=== PATIENT | female | born 1990 | race Caucasian/White ===

== ENCOUNTER 2016-08-27 11:25 | Emergency (ER) | payer OTHER ==
[2016-08-27] MEDS ORDERED: KETOROLAC 30 MG/ML 1 ML VIAL IVP STA (13:12)
[2016-08-27] MEDS ORDERED: HYDROmorphone 1 MG/ML 1 ML SYRINGE IVP STA ×2 (13:12→15:09)
[2016-08-27] MEDS ORDERED: ONDANSETRON 4 MG/2 ML VIAL IVP STA (13:12)
[2016-08-27] MEDS ORDERED: SODIUM CHLORIDE 0.9% 1,000 ML IV STA ×2 (13:12)
--- NOTE | 2016-08-27 13:48 | ED ---
General Adult HPI - General Chief complaint: Back Pain/Injury Stated complaint: back and side pain Time Seen by Provider: 08/27/16 13:08 Source: patient Mode of arrival: ambulatory Limitations: no limitations - History of Present Illness Initial comments: This 26-year-old white female presents with a complaint of some left flank pain which seems to radiate into her left lower abdomen. She states that it started yesterday and has progressively worsened. She has had some frequency but denies any hematuria or dysuria. She has had chills but denies any fever. She' s tried Tylenol without any relief. She denies any nausea or vomiting. She also denies any possibility of . She does have a history of previous renal stones, urinary tract infections, pyelonephritis, ovarian cysts, and blood clots in her kidney. No other complaints or modifying factors. - Related Data Home Medications Medication Instructions Recorded Confirmed Albuterol Inhaler [Ventolin Hfa 1 - 2 puff INHALATION RT-Q6H PRN 12/05/15 Inhaler] Acetaminophen [Tylenol] 1,500 mg PO Q4-6H PRN 08/27/16 08/27/16 D-Methorphan/Acetamin/Doxylamn 45 ml PO HS PRN 08/27/16 08/27/16 [Vicks Nyquil Cold & Flu Liquid] Previous Rx's Medication Instructions Recorded Ciprofloxacin HCl [Cipro] 500 mg PO Q12HR #20 tablet 08/27/16 Hydrocodone/Acetaminophen [[place] 1 - 2 each PO Q4HR PRN #20 tab 08/27/16 5-325] Allergies Allergy/AdvReac Type Severity Reaction Status Date / Time progesterone Allergy Swelling Verified 08/27/16 14:22 Review of Systems ROS Statement: Those systems with pertinent positive or pertinent negative responses have been documented in the HPI. ROS Other: All systems not noted in ROS Statement are negative. Past Medical History Past Medical History: Asthma Additional Past Medical History / Comment(s): OVARIAN CYST, scoliosis , kidney stones, blood clots in kidneys History of Any Multi-Drug Resistant Organisms: None Reported Past Surgical History: Appendectomy, Section, Orthopedic Surgery Additional Past Surgical History / Comment(s): OVARIAN CYST SURGERY, ORTHO SURGERY TO RIGHT HIP, RIGHT KNEE, RIGHT FOOT, right foot 2nd toe Past Psychological History: Depression Smoking Status: Current every day smoker Past Alcohol Use History: None Reported Past Drug Use History: None Reported - Past Family History Father History Unknown: Yes Additional Family Medical History / Comment(s): BONE CANCER General Exam - General Exam Comments Initial Comments: GENERAL: The patient is well nourished and well hydrated. VITAL SIGNS: Heart rate, blood pressure, respiratory rate reviewed as recorded in nurse's notes. EYES: Pupils are round and reactive. Extraocular movements are intact. No conjunctival / lid redness or swelling. ENT: No external evidence of injury, swelling, or ecchymosis. Airway is patent. Throat is clear. NECK: Nontender. No swelling or evidence of injury. No subcutaneous emphysema. Trachea is midline. No thyroid mass. HEART: Regular rate and rhythm. Good peripheral pulses. LUNGS/CHEST: Breath sounds clear and equal bilaterally. No rales, rhonchi, or wheezes. No ecchymosis, subcutaneous emphysema, or tenderness. ABDOMEN: There is tenderness into the left flank and minimally into the left lower abdomen. No palpable masses or organomegaly. No peritoneal signs. No abdominal wall swelling or ecchymosis. EXTREMITIES: No extremity tenderness. Normal muscle tone and function. No thoracolumbar tenderness. NEUROLOGIC: Sensation is grossly intact. Cranial nerve exam reveals face is symmetrical, tongue is midline, speech is clear. SKIN: No abrasions or ecchymosis is noted. No induration or masses noted. PSYCHIATRIC: Alert and oriented. Appropriate behavior and judgment. Limitations: no limitations Course Vital Signs 08/27/16 08/27/16 11:26 15:17 Temperature 96.4 F L 98.3 F Pulse Rate 120 H 90 Respiratory 20 20 Rate Blood Pressure 186/90 101/61 O2 Sat by Pulse 100 100 Oximetry Medical Decision Making - Medical Decision Making The patient was seen and examined. All diagnostics were reviewed. She did receive some Dilaudid for pain control. She also received some IV fluids. The Dilaudid was later repeated intravenously. She also received Toradol. She is in much less relief on recheck. The urinalysis did show possibility of urinary tract infection. White blood cell count is slightly elevated. The computed tomography scan of the abdomen and pelvis does show evidence for a 2 cm left ovarian cyst. The possibility of medullary sponge kidney is certainly possible as well per radiology. She receives Rocephin intravenously. Overall is felt as though she is stable for discharge. Her diagnoses were discussed in detail with her. Return parameters are discussed. - Lab Data Result diagrams: 08/27/16 13:50 08/27/16 13:50 Lab Results 08/27/16 08/27/16 08/27/16 Range/Units 13:31 13:31 13:50 WBC 11.0 H (3.8-10.6) k/uL RBC 4.65 (3.80-5.40) m/uL Hgb 15.4 (11.4-16.0) gm/dL Hct 46.2 H (34.0-46.0) % MCV 99.3 (80.0-100.0) fL MCH 33.0 (25.0-35.0) pg MCHC 33.3 (31.0-37.0) g/dL RDW 12.5 (11.5-15.5) % Plt Count 197 (150-450) k/uL Neutrophils % 77 % Lymphocytes % 14 % Monocytes % 5 % Eosinophils % 1 % Basophils % 0 % Neutrophils # 8.5 H (1.3-7.7) k/uL Lymphocytes # 1.6 (1.0-4.8) k/uL Monocytes # 0.5 (0-1.0) k/uL Eosinophils # 0.2 (0-0.7) k/uL Basophils # 0.0 (0-0.2) k/uL Sodium (137-145) mmol/L Potassium (3.5-5.1) mmol/L Chloride (98-107) mmol/L Carbon Dioxide (22-30) mmol/L Anion Gap mmol/L BUN (7-17) mg/dL Creatinine (0.52-1.04) mg/dL Est GFR (MDRD) Af Amer (>60 ml/min/1.73 sqM) Est GFR (MDRD) Non-Af (>60 ml/min/1.73 sqM) Glucose (74-99) mg/dL Calcium (8.4-10.2) mg/dL Total Bilirubin (0.2-1.3) mg/dL AST (14-36) U/L ALT (9-52) U/L Alkaline Phosphatase (38-126) U/L Total Protein (6.3-8.2) g/dL Albumin (3.5-5.0) g/dL Urine Color Yellow Urine Appearance Cloudy H (Clear) Urine pH 7.0 (5.0-8.0) Ur Specific [place] 1.010 (1.001-1.035) Urine Protein Negative (Negative) Urine Glucose (UA) Negative (Negative) Urine Ketones Negative (Negative) Urine Blood Moderate H (Negative) Urine Nitrite Negative (Negative) Urine Bilirubin Negative (Negative) Urine Urobilinogen <2.0 (<2.0) mg/dL Ur Leukocyte Esterase Moderate H (Negative) Urine RBC 2 (0-5) /hpf Urine WBC 13 H (0-5) /hpf Ur Squamous Epith Cells 13 H (0-4) /hpf Amorphous Sediment Rare H (None) /hpf Urine Bacteria Rare H (None) /hpf Urine Mucus Rare H (None) /hpf Urine HCG, Qual Not Detected (Not Detectd) 08/27/16 Range/Units 13:50 WBC (3.8-10.6) k/uL RBC (3.80-5.40) m/uL Hgb (11.4-16.0) gm/dL Hct (34.0-46.0) % MCV (80.0-100.0) fL MCH (25.0-35.0) pg MCHC (31.0-37.0) g/dL RDW (11.5-15.5) % Plt Count (150-450) k/uL Neutrophils % % Lymphocytes % % Monocytes % % Eosinophils % % Basophils % % Neutrophils # (1.3-7.7) k/uL Lymphocytes # (1.0-4.8) k/uL Monocytes # (0-1.0) k/uL Eosinophils # (0-0.7) k/uL Basophils # (0-0.2) k/uL Sodium 142 (137-145) mmol/L Potassium 4.1 (3.5-5.1) mmol/L Chloride 104 (98-107) mmol/L Carbon Dioxide 25 (22-30) mmol/L Anion Gap 13 mmol/L BUN 10 (7-17) mg/dL Creatinine 0.58 (0.52-1.04) mg/dL Est GFR (MDRD) Af Amer >60 (>60 ml/min/1.73 sqM) Est GFR (MDRD) Non-Af >60 (>60 ml/min/1.73 sqM) Glucose 92 (74-99) mg/dL Calcium 9.6 (8.4-10.2) mg/dL Total Bilirubin 0.7 (0.2-1.3) mg/dL AST 21 (14-36) U/L ALT 20 (9-52) U/L Alkaline Phosphatase 71 (38-126) U/L Total Protein 8.0 (6.3-8.2) g/dL Albumin 4.7 (3.5-5.0) g/dL Urine Color Urine Appearance (Clear) Urine pH (5.0-8.0) Ur Specific [place] (1.001-1.035) Urine Protein (Negative) Urine Glucose (UA) (Negative) Urine Ketones (Negative) Urine Blood (Negative) Urine Nitrite (Negative) Urine Bilirubin (Negative) Urine Urobilinogen (<2.0) mg/dL Ur Leukocyte Esterase (Negative) Urine RBC (0-5) /hpf Urine WBC (0-5) /hpf Ur Squamous Epith Cells (0-4) /hpf Amorphous Sediment (None) /hpf Urine Bacteria (None) /hpf Urine Mucus (None) /hpf Urine HCG, Qual (Not Detectd) Disposition Clinical Impression: Ovarian cyst, Flank pain, UTI (urinary tract infection), Abdominal pain Disposition: HOME SELF-CARE Condition: Good Instructions: Abdominal Pain (ED), Ovarian Cyst (ED), Urinary Tract Infection in Women (ED) Prescriptions: Ciprofloxacin HCl [Cipro] 500 mg PO Q12HR #20 tablet Hydrocodone/Acetaminophen [[place] 5-325] 1 - 2 each PO Q4HR PRN #20 tab PRN Reason: Pain Referrals: Jenny White MD [Primary Care Provider] - 1-2 days Time of Disposition: 15:42
[2016-08-27 13:57] LABS: Amorphous Sediment,Urine Rare /hpf; Appearance,Urine Cloudy (Clear); Bacteria,Urine Rare /hpf; Bilirubin,Urine Negative (Negative); Glucose,Urine (UA) Negative (Negative); Ketones,Urine Negative (Negative); Leukocyte Esterase,Urine Moderate (Negative); Mucus,Urine Rare /hpf; Nitrite,Urine Negative (Negative); Particle Count 98430; Protein,Urine Negative (Negative); RBC,Urine 2 /hpf (0-5); Squamous Epithelial Cell,Urine 13 /hpf (0-4); UA Billing (MACRO vs. MICRO) MICRO; Urobilinogen,Urine <2.0 mg/dL (<2.0); WBC,Urine 13 /hpf (0-5)
[2016-08-27 14:02] LABS: Basophils % (A) 0 %; CH 32.4; CHCM 32.8; Eosinophils # (A) 0.2 k/uL (0-0.7); Eosinophils % (A) 1 %; HCT 46.2 % (34.0-46.0); HDW 2.11; HGB 15.4 gm/dL (11.4-16.0); Luc # (Auto) 0.23; Luc % (Auto) 2; Lymphocytes # (A) 1.6 k/uL (1.0-4.8); Lymphocytes % (A) 14 %; MCHC 33.3 g/dL (31.0-37.0); MCV 99.3 fL (80.0-100.0); Mean Platelet Volume 9.8; Monocytes # (A) 0.5 k/uL (0-1.0); Monocytes % (A) 5 %; Neutrophils # (A) 8.5 k/uL (1.3-7.7); Neutrophils % (A) 77 %; RBC 4.65 m/uL (3.80-5.40); RDW 12.5 % (11.5-15.5); WBC (Perox) 10.94
[2016-08-27 14:17] LABS: ALT 20 U/L (9-52); AST 21 U/L (14-36); Alkaline Phosphatase 71 U/L (38-126); Anion Gap 13 mmol/L; Blood Urea Nitrogen 10 mg/dL (7-17); Calcium 9.6 mg/dL (8.4-10.2); Carbon Dioxide 25 mmol/L (22-30); Chloride 104 mmol/L (98-107); Glucose 92 mg/dL (74-99); Non-African American GFR(MDRD) >60 (>60 ml/min/1.73 sqM); Potassium 4.1 mmol/L (3.5-5.1); Sodium 142 mmol/L (137-145); Total Bilirubin 0.7 mg/dL (0.2-1.3)
--- NOTE | 2016-08-27 15:22 | CT ---
EXAMINATION TYPE: CT abdomen pelvis wo con DATE OF EXAM: 08/27/2016 3:04 PM COMPARISON: 05/10/2015 HISTORY: Pt states of left flank pain. CT DLP: 331.0 mGycm Automated exposure control for dose reduction was used. TECHNIQUE: Helical acquisition of images was performed from the lung bases through the pelvis. FINDINGS: LUNG BASES: No significant abnormality is appreciated. LIVER/GB: No significant abnormality is appreciated. PANCREAS: No significant abnormality is seen. SPLEEN: No significant abnormality is seen. ADRENALS: No significant abnormality is seen. KIDNEYS: Medullary pyramids are somewhat dense which can occasionally be seen with medullary sponge k idney. No sizable renal calcification or obstruction. URINARY BLADDER: No significant abnormality is seen. ADENOPATHY: None visualized. OSSEOUS STRUCTURES: No significant abnormality is seen. BOWEL: Previous surgery involving the right colon suggesting with staple line suggested. Correlate w ith surgical history. OTHER: There is a fluid-filled structure in the left adnexa measuring 2 cm likely in the basis of ova simba cyst. Uterus appears prominent in size. IMPRESSION: FINDINGS SUGGESTIVE OF 2 CM LEFT OVARIAN CYST. HYPERDENSE MEDULLARY PYRAMIDS IS NONSPECIFIC AND OCCASIONALLY BE SEEN WITH MEDULLARY SPONGE KIDNEY. N O HYDRONEPHROSIS. CORRELATE WITH URINALYSIS. PREVIOUS NOTED RIGHT RENAL LESION NOT SEEN ON TODAY'S EXAM DUE TO LACK OF IV CONTRAST AND SHOULD BE C ORRELATED CLINICALLY..
[2016-08-27 15:56] VITALS: BP 97/67; PULSE 97; RESP 18; TEMP 97.6
== END 2016-08-27 16:16 | disposition home or self-care (01) ==
LOC: EC 11:25
DX: N83.202 Unspecified ovarian cyst, left side (principal); N39.0 Urinary tract infection, site not specified; F17.200 Nicotine dependence, unspecified, uncomplicated; Z90.49 Acquired absence of other specified parts of digestive tract; Z87.442 Personal history of urinary calculi; Z98.890 Other specified postprocedural states; Z88.8 Allergy status to other drugs, medicaments and biological substances
CPT/HCPCS: 96375 ×4; 96376 ×2; 96361 ×2; 96365 ×2; 99284 ×2; 36415; 80053; 85025; 81001; 81025; 87040; 74176; J2405; J0696; J1885; J1170; 96374

== ENCOUNTER 2017-03-26 20:16 | Emergency (ER) | payer OTHER ==
[2017-03-26 20:40] VITALS: RESP 18
--- NOTE | 2017-03-26 20:45 | ED ---
General Adult HPI - General Chief complaint: Upper Respiratory Infection Stated complaint: URI Time Seen by Provider: 03/26/17 20:44 Source: patient Mode of arrival: ambulatory Limitations: no limitations - History of Present Illness Initial comments: Patient is a 26-year-old female with past medical history of asthma and current every day smoker who presents to the emergency department for evaluation of cough for 4 days duration. Patient reports that she developed cough and shortness of breath on Saturday. She reports that since that time she has been using her inhaler approximately every 2 hours while she is awake with minimal transient improvement in her cough. She reports that today she feels the cough is becoming more productive and she has been experiencing progressively worsening shortness of breath. She reports that this evening became overwhelming which prompted her to come to the emergency department for further evaluation. Patient reports that as a child she was hospitalized for her asthma and she does believe she may of been intubated in the past however this is not happening to her since she was very young. - Related Data Home Medications Medication Instructions Recorded Confirmed Albuterol Inhaler [Ventolin Hfa 1 - 2 puff INHALATION RT-Q6H PRN 12/05/15 Inhaler] Acetaminophen [Tylenol] 1,000 mg PO Q4-6H PRN 08/27/16 03/26/17 Ibuprofen [Motrin] 600 mg PO Q8HR PRN 03/26/17 03/26/17 Previous Rx's Medication Instructions Recorded Albuterol Nebulized (Conc) 0 mg INHALATION Q4-6H PRN #60 neb 03/26/17 [Ventolin Nebulized (Conc)] predniSONE 50 mg PO DAILY #5 tablet 03/26/17 Allergies Allergy/AdvReac Type Severity Reaction Status Date / Time progesterone Allergy Swelling Verified 03/26/17 20:57 Review of Systems ROS Statement: Those systems with pertinent positive or pertinent negative responses have been documented in the HPI. ROS Other: All systems not noted in ROS Statement are negative. Constitutional: Reports: fever, chills Eyes: Denies: vision change ENT: Reports: throat pain Respiratory: Reports: cough, dyspnea, wheezes Cardiovascular: Reports: palpitations. Denies: chest pain Endocrine: Reports: fatigue Gastrointestinal: Denies: abdominal pain, nausea, vomiting Genitourinary: Denies: urgency, dysuria Musculoskeletal: Denies: back pain Skin: Denies: rash, lesions Neurological: Denies: headache, weakness Psychiatric: Reports: anxiety Hematological/Lymphatic: Denies: easy bleeding, easy bruising Past Medical History Past Medical History: Asthma Additional Past Medical History / Comment(s): OVARIAN CYST, scoliosis , kidney stones, blood clots in kidneys History of Any Multi-Drug Resistant Organisms: None Reported Past Surgical History: Appendectomy, Section, Orthopedic Surgery Additional Past Surgical History / Comment(s): OVARIAN CYST SURGERY, ORTHO SURGERY TO RIGHT HIP, RIGHT KNEE, RIGHT FOOT, right foot 2nd toe Past Psychological History: Depression Smoking Status: Current every day smoker Past Alcohol Use History: Occasional Past Drug Use History: None Reported - Past Family History Father History Unknown: Yes Additional Family Medical History / Comment(s): BONE CANCER General Exam Limitations: no limitations General appearance: alert, anxious Head exam: Present: atraumatic, normocephalic Eye exam: Present: normal appearance, PERRL Neck exam: Present: normal inspection, full ROM. Absent: lymphadenopathy Respiratory exam: Present: wheezes, prolonged expiratory Cardiovascular Exam: Present: normal rhythm, tachycardia GI/Abdominal exam: Present: soft. Absent: distended, tenderness, guarding, rebound, rigid Rectal exam: Present: deferred Extremities exam: Present: normal inspection Back exam: Present: normal inspection. Absent: CVA tenderness (R), CVA tenderness (L) Neurological exam: Present: alert, oriented X3 Psychiatric exam: Present: anxious (Crying) Skin exam: Present: warm, diaphoretic Course Vital Signs 03/26/17 03/26/17 03/26/17 20:37 21:10 21:28 Temperature 98.7 F Pulse Rate 95 96 96 Respiratory 18 Rate Blood Pressure 125/63 O2 Sat by Pulse 99 Oximetry 03/26/17 22:37 Temperature 98.2 F Pulse Rate 87 Respiratory 18 Rate Blood Pressure 122/65 O2 Sat by Pulse 100 Oximetry Procedures - Smoking Cessation Time Spent Discussing Smoking Cessation w/Patient (Minutes): 10 Patient Acknowledges Need for Cessation: Yes Medical Decision Making - Medical Decision Making Patient was seen and evaluated, history was obtained from the patient Patient has a history of asthma with home nebulizer which she is currently out of, as well as home rescue inhaler which she has been using with minimal relief Patient is a current every day smoker Patient with progressively worsening nonproductive cough and wheeze since Saturday Patient not tachycardic or hypoxic on arrival physical exam is consistent with acute asthma exacerbation as the patient has wheezing in all lung keller. I will order DuoNeb therapy and chest x-ray Chest x-ray without acute process Patient had significant improvement in symptoms after DuoNeb's Patient was reevaluated and was sleeping comfortably in the ER bed. I woke the patient and discussed with her improvement in her symptoms. I advised that I think she has a viral upper respiratory tract infection, not influenza, and that she can be managed outpatient with [id number] nebulizer and by mouth steroids. We'll not give a dose of steroids this evening as they can make the patient agitated and she wants to sleep this evening she will start by mouth steroids in the morning. Patient was prescribed nebulizer therapy. She does have a nebulizer at home but has been out of her medication. Eyes the patient to return to the ER should she develop any worsening cough or shortness of breath, fevers, chest pain or any signs or symptoms she finds concerning. All questions pertaining to care were answered to the best of my ability and the patient was discharged home in a much improved condition with the diagnoses of acute asthma exacerbation, upper respiratory tract infection and tobacco abuse - Lab Data Lab Results 03/26/17 Range/Units 21:45 Influenza Type A RNA Not Detected (Not Detectd) Influenza Type B (PCR) Not Detected (Not Detectd) Disposition Clinical Impression: Viral infection, Upper respiratory infection, Asthma exacerbation, Tobacco abuse Disposition: HOME SELF-CARE Condition: Good Instructions: Upper Respiratory Infection (ED) Prescriptions: Albuterol Nebulized (Conc) [Ventolin Nebulized (Conc)] 0 mg INHALATION Q4-6H PRN #60 neb PRN Reason: Cough predniSONE 50 mg PO DAILY #5 tablet Referrals: Jenny White MD [Primary Care Provider] - 1-2 days Time of Disposition: 22:37
[2017-03-26] MEDS ORDERED: IPRATROPIUM-ALBUTEROL 3 ML NEB INHALATION STA (20:53)
--- NOTE | 2017-03-26 22:04 | XR ---
EXAMINATION TYPE: XR chest 2V DATE OF EXAM: 03/26/2017 COMPARISON: Prior exam 05/30/2010 HISTORY: Cough and shortness of breath TECHNIQUE: Frontal and lateral views of the chest are obtained. FINDINGS: There is no focal air space opacity, pleural effusion, or pneumothorax seen. The cardiac silhouette size is within normal limits. The osseous structures are intact. There may be a spinal c urvature. IMPRESSION: No acute cardiopulmonary process.
[2017-03-26 22:39] VITALS: BP 122/65; PULSE 87; TEMP 98.2
== END 2017-03-26 22:46 | disposition home or self-care (01) ==
LOC: EC 20:16
DX: J45.901 Unspecified asthma with (acute) exacerbation (principal); J06.9 Acute upper respiratory infection, unspecified; B34.9 Viral infection, unspecified; F17.200 Nicotine dependence, unspecified, uncomplicated; Z71.6 Tobacco abuse counseling; Z88.8 Allergy status to other drugs, medicaments and biological substances
CPT/HCPCS: 71020; 87502; 94640; 99284

== ENCOUNTER 2020-01-18 10:30 | Observation (INO) | payer OTHER ==
[2020-01-18] MEDS ORDERED: KETOROLAC 30 MG/ML 1 ML VIAL IVP STA (11:10)
--- NOTE | 2020-01-18 11:39 | ED ---
Abdominal Pain HPI - General Source: patient Mode of arrival: ambulatory Limitations: no limitations <Nancy Fuchs - Last Filed: 01/25/20 10:42> <Ros Roberson - Last Filed: 01/25/20 22:28> - General Chief Complaint: Abdominal Pain Stated Complaint: flank & back pain Time Seen by Provider: 01/18/20 10:56 - History of Present Illness Initial Comments: 29-year-old febrile presents today for chief complaint of right flank pain nausea and dysuria. Patient states that she has history of kidney stones she states that she has been having flank pain that radiates towards the anterior abdomen since Saturday. Also endorses dysuria and states that the symptoms are similar to when she's had a kidney stone in the past. Patient denies fevers, admits to chills. Denies , vaginal bleeding. Patient denies vomiting, diarrhea. Patient denies chest pain or SOB. Patient appears uncomfortable on arrival. (Nancy Fuchs) - Related Data Previous Rx's Medication Instructions Recorded Acetaminophen Tab [Tylenol] 650 mg PO Q6HR PRN tab 01/19/20 Ciprofloxacin HCl [Cipro] 500 mg PO BID 6 Days #6 tab 01/19/20 metroNIDAZOLE [Flagyl] 500 mg PO TID 6 Days tab 01/19/20 Allergies Allergy/AdvReac Type Severity Reaction Status Date / Time progesterone Allergy Swelling Verified 01/18/20 13:57 Review of Systems ROS Other: All systems not noted in ROS Statement are negative. <Nancy Fuchs - Last Filed: 01/25/20 10:42> ROS Other: All systems not noted in ROS Statement are negative. <Ros Roberson - Last Filed: 01/25/20 22:28> ROS Statement: Those systems with pertinent positive or pertinent negative responses have been documented in the HPI. Past Medical History Past Medical History: Asthma Additional Past Medical History / Comment(s): Bronchial asthma mild intermittent in nature, ovarian cyst, scoliosis , kidney stones, history of UTI with Klebsiella and E. coli History of Any Multi-Drug Resistant Organisms: None Reported Past Surgical History: Appendectomy, Section, Orthopedic Surgery Additional Past Surgical History / Comment(s): OVARIAN CYST SURGERY, ORTHO SURGERY TO RIGHT HIP, RIGHT KNEE, RIGHT FOOT, right foot 2nd toe Past Anesthesia/Blood Transfusion Reactions: Postoperative Nausea & Vomiting (PONV) Past Psychological History: Anxiety, Depression Smoking Status: Current every day smoker Past Alcohol Use History: None Reported Past Drug Use History: None Reported - Past Family History Daughter(s) Family Medical History: Asthma Additional Family Medical History / Comment(s): tracheomalacia Brother(s) Additional Family Medical History / Comment(s): hydrocephalus Father History Unknown: Yes Additional Family Medical History / Comment(s): BONE CANCER <Nancy Fuchs - Last Filed: 01/25/20 10:42> General Exam Limitations: no limitations <Nancy Fuchs - Last Filed: 01/25/20 10:42> - General Exam Comments Initial Comments: General: The patient is awake and alert, appears uncomfortable, hollding right flank Eye: Pupils are equal, round and reactive to light, extra-ocular movements are intact. No nystagmus. There is normal conjunctiva bilaterally. No signs of icterus. Ears, nose, mouth and throat: There are moist mucous membranes and no oral lesions. Neck: The neck is supple, there is no tenderness or JVD. Cardiovascular: There is a regular rate and rhythm. No murmur, rub or gallop is appreciated. Respiratory: Lungs are clear to auscultation, respirations are non-labored, breath sounds are equal. No wheezes, stridor, rales, or rhonchi. Gastrointestinal: Soft, non-distended, non-tender abdomen without masses or organomegaly noted. There is no rebound or guarding present. Right CVA tenderness. Musculoskeletal: Normal ROM, no tenderness. Strength 5/5. Sensation intact. Pulses equal bilaterally 2+. Neurological: A&O x 3. CN II-XII intact grossly, There are no obvious motor or sensory deficits. Coordination appears grossly intact. Speech is normal. Skin: Skin is warm and dry and no rashes or lesions are noted. Psychiatric: Cooperative, appropriate mood & affect, normal judgment. (ShilaNancy Monzon) Course Vital Signs 01/18/20 01/18/20 01/18/20 10:50 13:12 15:25 Temperature 99.1 F 99.2 F Pulse Rate 114 H 104 H 98 Respiratory 18 18 18 Rate Blood Pressure 107/63 104/64 111/68 O2 Sat by Pulse 99 98 98 Oximetry Medical Decision Making - Lab Data Result diagrams: 01/19/20 05:50 01/19/20 05:50 <Nancy Fuchs - Last Filed: 01/25/20 10:42> - Lab Data Result diagrams: 01/19/20 05:50 01/19/20 05:50 <Ros Roberson - Last Filed: 01/25/20 22:28> - Medical Decision Making 29yo female presenting today for the cc of flank pain, hx of stones. No stone on CT, significant infection. Pain not controlled in the ER. She also has findings concerning for developing sepsis with VS. DOes not appear toxic at this time. Patient case discussed with Dr. Roberson who is agreeable to admission for IV antibiotics and pain controll. Patient agreeable to admission. (Nancy Fuchs) I was available for consultation in the emergency department. The history and physical exam were done by the midlevel provider. I was consulted for this patients care. I reviewed the case with the midlevel provider and based on their presentation of the patient, I agree with the assessment, medical decision making and plan of care as documented. Spoke with Dr. Cordova who agreed to admit the patient. Chart was dictated using [employer] dictation software. Attempts were made to correct any dictation errors however some typographical errors may persist. Patient was seen during a national state of emergency due to the Covid-19 pandemic. (Ros Roberson) - Lab Data Lab Results 01/18/20 01/18/20 01/18/20 Range/Units 11:09 11:09 11:12 WBC 8.0 (3.8-10.6) k/uL RBC 3.66 L (3.80-5.40) m/uL Hgb 11.2 L (11.4-16.0) gm/dL Hct 34.8 (34.0-46.0) % MCV 95.0 (80.0-100.0) fL MCH 30.7 (25.0-35.0) pg MCHC 32.3 (31.0-37.0) g/dL RDW 12.5 (11.5-15.5) % Plt Count 168 (150-450) k/uL Neutrophils % 82 % Lymphocytes % 8 % Monocytes % 7 % Eosinophils % 1 % Basophils % 0 % Neutrophils # 6.5 (1.3-7.7) k/uL Lymphocytes # 0.6 L (1.0-4.8) k/uL Monocytes # 0.6 (0-1.0) k/uL Eosinophils # 0.1 (0-0.7) k/uL Basophils # 0.0 (0-0.2) k/uL Sodium 139 (137-145) mmol/L Potassium 4.3 (3.5-5.1) mmol/L Chloride 108 H (98-107) mmol/L Carbon Dioxide 27 (22-30) mmol/L Anion Gap 4 mmol/L BUN 15 (7-17) mg/dL Creatinine 0.50 L (0.52-1.04) mg/dL Est GFR (CKD-EPI)AfAm >90 (>60 ml/min/1.73 sqM) Est GFR (CKD-EPI)NonAf >90 (>60 ml/min/1.73 sqM) Glucose 108 H (74-99) mg/dL Calcium 8.7 (8.4-10.2) mg/dL Total Bilirubin 0.5 (0.2-1.3) mg/dL AST 19 (14-36) U/L ALT 11 (4-34) U/L Alkaline Phosphatase 58 (38-126) U/L Total Protein 5.9 L (6.3-8.2) g/dL Albumin 3.7 (3.5-5.0) g/dL Urine Color Yellow Urine Appearance Turbid H (Clear) Urine pH 7.0 (5.0-8.0) Ur Specific [place] 1.016 (1.001-1.035) Urine Protein 2+ H (Negative) Urine Glucose (UA) Negative (Negative) Urine Ketones Negative (Negative) Urine Blood Moderate H (Negative) Urine Nitrite Negative (Negative) Urine Bilirubin Negative (Negative) Urine Urobilinogen <2.0 (<2.0) mg/dL Ur Leukocyte Esterase Large H (Negative) Urine RBC 28 H (0-5) /hpf Urine WBC >182 H (0-5) /hpf Urine WBC Clumps Many H (None) /hpf Ur Squamous Epith Cells 2 (0-4) /hpf Urine Bacteria Moderate H (None) /hpf Urine Mucus Few H (None) /hpf Urine HCG, Qual (Not Detectd) Chlamydia Source Chlamydia DNA (PCR) (Neg,Equiv) N. gonorrhoeae Source N.gonorrhoeae DNA Probe (Neg,Equiv) Trichomonas Ag (Rapid) (Negative) 01/18/20 01/18/20 01/18/20 Range/Units 11:12 12:20 12:20 WBC (3.8-10.6) k/uL RBC (3.80-5.40) m/uL Hgb (11.4-16.0) gm/dL Hct (34.0-46.0) % MCV (80.0-100.0) fL MCH (25.0-35.0) pg MCHC (31.0-37.0) g/dL RDW (11.5-15.5) % Plt Count (150-450) k/uL Neutrophils % % Lymphocytes % % Monocytes % % Eosinophils % % Basophils % % Neutrophils # (1.3-7.7) k/uL Lymphocytes # (1.0-4.8) k/uL Monocytes # (0-1.0) k/uL Eosinophils # (0-0.7) k/uL Basophils # (0-0.2) k/uL Sodium (137-145) mmol/L Potassium (3.5-5.1) mmol/L Chloride (98-107) mmol/L Carbon Dioxide (22-30) mmol/L Anion Gap mmol/L BUN (7-17) mg/dL Creatinine (0.52-1.04) mg/dL Est GFR (CKD-EPI)AfAm (>60 ml/min/1.73 sqM) Est GFR (CKD-EPI)NonAf (>60 ml/min/1.73 sqM) Glucose (74-99) mg/dL Calcium (8.4-10.2) mg/dL Total Bilirubin (0.2-1.3) mg/dL AST (14-36) U/L ALT (4-34) U/L Alkaline Phosphatase (38-126) U/L Total Protein (6.3-8.2) g/dL Albumin (3.5-5.0) g/dL Urine Color Urine Appearance (Clear) Urine pH (5.0-8.0) Ur Specific [place] (1.001-1.035) Urine Protein (Negative) Urine Glucose (UA) (Negative) Urine Ketones (Negative) Urine Blood (Negative) Urine Nitrite (Negative) Urine Bilirubin (Negative) Urine Urobilinogen (<2.0) mg/dL Ur Leukocyte Esterase (Negative) Urine RBC (0-5) /hpf Urine WBC (0-5) /hpf Urine WBC Clumps (None) /hpf Ur Squamous Epith Cells (0-4) /hpf Urine Bacteria (None) /hpf Urine Mucus (None) /hpf Urine HCG, Qual Not Detected (Not Detectd) Chlamydia Source Vagina Chlamydia DNA (PCR) Negative (Neg,Equiv) N. gonorrhoeae Source Vagina N.gonorrhoeae DNA Probe Negative (Neg,Equiv) Trichomonas Ag (Rapid) Positive H (Negative) Disposition Is patient prescribed a controlled substance at d/c from ED?: No Time of Disposition: 13:15 Decision to Admit Reason: Admit from EC Decision Date: 01/18/20 Decision Time: 13:15 <Nancy Fuchs - Last Filed: 01/25/20 10:42> <Ros Roberson - Last Filed: 01/25/20 22:28> Clinical Impression: Pyelonephritis, Fever, UTI (urinary tract infection), Right flank pain, Intractable pain Disposition: ADMITTED IP TO THIS HOSP Condition: Stable
--- NOTE | 2020-01-18 11:43 | CT ---
EXAMINATION TYPE: CT abdomen pelvis wo con DATE OF EXAM: 01/18/2020 HISTORY: Right flank pain. History of kidney stones. CT DLP: 488.3 mGycm. Automated Exposure Control for Dose Reduction was Utilized. TECHNIQUE: CT scan of the abdomen and pelvis is performed without oral or IV contrast. COMPARISON: CT abdomen and pelvis January 27, 2018 FINDINGS: Within the limitations of a non-contrast study, the following observations are made. LUNG BASES: No significant abnormality is appreciated. LIVER/GB: No significant abnormality is appreciated. PANCREAS: No significant abnormality is seen. SPLEEN: No significant abnormality is seen. ADRENALS: No significant abnormality is seen. KIDNEYS: Redemonstration of single 1 to 2 mm nonobstructing calculus left kidney midpole level carroll l image 56 not significant change from prior. No left-sided hydronephrosis. Persistent mild fullness right renal pelvis with new lower pole calyceal dilatation coronal image 50. Obstructing calculus not clearly seen. No significant hydroureter. No intraluminal calculi in the po jcarlos distended bladder. Stable 4 mm left pelvic phlebolith axial image 128. BOWEL: Surgical sutures at the base of cecum from appendectomy in the right pelvis redemonstrated. Rhodes boptimal evaluation without enteric contrast and patient having little intra-abdominal fat. No suspic ious small or large bowel dilatation. Mild ascites in the pelvis adjacent to the lower uterine segmen t axial image 128. GENITAL ORGANS: Retroverted uterus. Normal size ovaries. LYMPH NODES: No greater than 1cm abdominal or pelvic lymph nodes are appreciated. OSSEOUS STRUCTURES: Sacralized left L5 segment redemonstrated. OTHER: No significant additional abnormality is seen. IMPRESSION: Cannot exclude new mild right-sided hydronephrosis. New and/or obstructing calculus not c learly visualized. Consider recently passed calculus. Consider vesicoureteral reflux. Mild to minimal nonspecific free fluid in pelvis. Diminished pelvic fluid versus prior. No new or acute finding othe rwise seen.
[2020-01-18 11:45] LABS: Appearance,Urine Turbid (Clear); Bacteria,Urine Moderate /hpf; Bilirubin,Urine Negative (Negative); Blood,Urine Moderate (Negative); Color,Urine Yellow; Glucose,Urine (UA) Negative (Negative); Ketones,Urine Negative (Negative); Leukocyte Esterase,Urine Large (Negative); Mucus,Urine Few /hpf; Nitrite,Urine Negative (Negative); Protein,Urine 2+ (Negative); RBC,Urine 28 /hpf (0-5); Specific Gravity,Urine 1.016 (1.001-1.035); Squamous Epithelial Cell,Urine 2 /hpf (0-4); Urobilinogen,Urine <2.0 mg/dL (<2.0); WBC,Urine >182 /hpf (0-5)
[2020-01-18 12:13] LABS: Basophils % (A) 0 %; Eosinophils # (A) 0.1 k/uL (0-0.7); Eosinophils % (A) 1 %; HCT 34.8 % (34.0-46.0); HGB 11.2 gm/dL (11.4-16.0); Lymphocytes # (A) 0.6 k/uL (1.0-4.8); Lymphocytes % (A) 8 %; MCH 30.7 pg (25.0-35.0); MCHC 32.3 g/dL (31.0-37.0); Mean Platelet Volume 8.6; Monocytes # (A) 0.6 k/uL (0-1.0); Monocytes % (A) 7 %; Neutrophils # (A) 6.5 k/uL (1.3-7.7); Neutrophils % (A) 82 %; Platelet Count 168 k/uL (150-450); RBC 3.66 m/uL (3.80-5.40); RDW 12.5 % (11.5-15.5)
[2020-01-18 12:27] LABS: ALT 11 U/L (4-34); AST 19 U/L (14-36); African American GFR (CKD) >90 (>60 ml/min/1.73 sqM); Albumin 3.7 g/dL (3.5-5.0); Alkaline Phosphatase 58 U/L (38-126); Anion Gap 4 mmol/L; Blood Urea Nitrogen 15 mg/dL (7-17); Calcium 8.7 mg/dL (8.4-10.2); Carbon Dioxide 27 mmol/L (22-30); Chloride 108 mmol/L (98-107); Glucose 108 mg/dL (74-99); Non-African American GFR(CKD) >90 (>60 ml/min/1.73 sqM); Potassium 4.3 mmol/L (3.5-5.1); Sodium 139 mmol/L (137-145); Total Bilirubin 0.5 mg/dL (0.2-1.3); Total Protein 5.9 g/dL (6.3-8.2)
[2020-01-18] MEDS ORDERED: ACET/COD 300 MG/30 MG STARTER PACK 6 TAB BTL PO STA (12:28)
[2020-01-18] MEDS ORDERED: MORPHINE SULFATE 2 MG/ML SYRINGE IVP STA (12:44)
[2020-01-18] MEDS ORDERED: SODIUM CHLORIDE 0.9% 1,000 ML IV ONE (13:14)
[2020-01-18] MEDS ORDERED: SODIUM CHLORIDE 0.9% 500 ML 500 ML IV ONE (13:14)
[2020-01-18] MEDS ORDERED: NALOXONE 0.4 MG/ML 1 ML VIAL IV PRN ×2 (13:15→15:04)
[2020-01-18] MEDS: SODIUM CHLORIDE 0.9% 1,000 ML IV SCH (13:39)
[2020-01-18] MEDS ORDERED: metroNIDAZOLE 500 MG TAB PO STA (14:36)
[2020-01-18] MEDS ORDERED: DOCUSATE 100 MG CAP PO PRN (15:04)
[2020-01-18] MEDS ORDERED: ONDANSETRON 4 MG/2 ML VIAL IVP PRN (15:04)
[2020-01-18] MEDS: MORPHINE SULFATE 2 MG/ML SYRINGE IVP PRN ×2 (15:30→20:58)
--- NOTE | 2020-01-18 15:34 | P.HPIM ---
History of Present Illness H&P Date: 01/18/20 Chief Complaint: abdominal pain 29-year-old woman with past medical history of kidney stones, appendectomy presented with abdominal pain. Patient tells me that her pain started Saturday, feels like it's on her right flank and radiates down to her groin. The pain is severe enough that it does not give her comfortable position to rest. She's had loss of appetite, nausea. She denies any vomiting, fevers. She reports chills. She denies chest pain, shortness of breath, palpitations, syncopal, dysuria, dyschezia, hematemesis, hematuria, hematochezia, melena, numbness/weakness. On arrival she was afebrile, 104/64, heart rate 104, 98% on room air. CBC, chemistries, LFTs are unremarkable. UA was significant for 2+ protein, moderate blood, large leukocyte esterase, 28 RBCs, rate of than 182 WBCs, many WBC clumps, moderate bacteria. Beta hCG was negative. Serology for Trichomonas antigen was positive. CT of the abdomen/pelvis could not exclude a new mild rig ht-sided hydronephrosis, but did not show any new or obstructing calculus, suspicion for recently passed calculus. Review of Systems All Systems reviewed and pertinent positives and negatives noted in HPI, all other symptoms are negative Past Medical History Past Medical History: Asthma Additional Past Medical History / Comment(s): Bronchial asthma mild intermittent in nature, ovarian cyst, scoliosis , kidney stones, history of UTI with Klebsiella and E. coli History of Any Multi-Drug Resistant Organisms: None Reported Past Surgical History: Appendectomy, Section, Orthopedic Surgery Additional Past Surgical History / Comment(s): OVARIAN CYST SURGERY, ORTHO SURGERY TO RIGHT HIP, RIGHT KNEE, RIGHT FOOT, right foot 2nd toe Past Anesthesia/Blood Transfusion Reactions: Postoperative Nausea & Vomiting (PONV) Past Psychological History: Anxiety, Depression Smoking Status: Current every day smoker Past Alcohol Use History: None Reported Past Drug Use History: None Reported - Past Family History Daughter(s) Family Medical History: Asthma Additional Family Medical History / Comment(s): tracheomalacia Brother(s) Additional Family Medical History / Comment(s): hydrocephalus Father History Unknown: Yes Additional Family Medical History / Comment(s): BONE CANCER Medications and Allergies Home Medications Medication Instructions Recorded Confirmed Type Acetaminophen Tab [Tylenol Tab] 1,000 mg PO Q6HR PRN 01/18/20 01/18/20 History Ibuprofen [Motrin Ib] 400 mg PO Q8H PRN 01/18/20 01/18/20 History Allergies Allergy/AdvReac Type Severity Reaction Status Date / Time progesterone Allergy Swelling Verified 01/18/20 13:57 Physical Exam Osteopathic Statement: *. No significant issues noted on an osteopathic structural exam other than those noted in the History and Physical/Consult. Vitals: Vital Signs Temp Pulse Resp BP Pulse Ox 01/18/20 13:12 99.2 F 104 H 18 104/64 98 01/18/20 10:50 99.1 F 114 H 18 107/63 99 Intake and Output 01/18/20 01/18/20 01/18/20 06:59 14:59 22:59 Other: Weight 65.136 kg Gen: awake, alert HEENT: normocephalic, atraumatic, good hearing acuity, moist mucous membranes Resp: CTAB, good air exchange, no accessory muscle use, no wheezes, crackles, rhonchi CVS: good distal perfusion x 4, RRR, no murmurs, clicks, gallops GI: soft, NTTP, ND : no SPT, positive CVAT, valverde catheter not present MSK: no pitting edema, no clubbing Neuro: non-focal, no sensory deficits, appropriate tone Psych: cooperative, euthymic mood Results CBC & Chem 7: 01/18/20 11:09 01/18/20 11:09 Labs: Abnormal Lab Results - Last 24 Hours (Table) 01/18/20 01/18/20 01/18/20 Range/Units 11:09 11:09 11:12 RBC 3.66 L (3.80-5.40) m/uL Hgb 11.2 L (11.4-16.0) gm/dL Lymphocytes # 0.6 L (1.0-4.8) k/uL Chloride 108 H (98-107) mmol/L Creatinine 0.50 L (0.52-1.04) mg/dL Glucose 108 H (74-99) mg/dL Total Protein 5.9 L (6.3-8.2) g/dL Urine Appearance Turbid H (Clear) Urine Protein 2+ H (Negative) Urine Blood Moderate H (Negative) Ur Leukocyte Esterase Large H (Negative) Urine RBC 28 H (0-5) /hpf Urine WBC >182 H (0-5) /hpf Urine WBC Clumps Many H (None) /hpf Urine Bacteria Moderate H (None) /hpf Urine Mucus Few H (None) /hpf Trichomonas Ag (Rapid) (Negative) 01/18/20 Range/Units 12:20 RBC (3.80-5.40) m/uL Hgb (11.4-16.0) gm/dL Lymphocytes # (1.0-4.8) k/uL Chloride (98-107) mmol/L Creatinine (0.52-1.04) mg/dL Glucose (74-99) mg/dL Total Protein (6.3-8.2) g/dL Urine Appearance (Clear) Urine Protein (Negative) Urine Blood (Negative) Ur Leukocyte Esterase (Negative) Urine RBC (0-5) /hpf Urine WBC (0-5) /hpf Urine WBC Clumps (None) /hpf Urine Bacteria (None) /hpf Urine Mucus (None) /hpf Trichomonas Ag (Rapid) Positive H (Negative) Assessment and Plan Assessment: 1. Acute pyelonephritis, right-sided 2. Trichomonal infection 29-year-old woman with history of kidney stones presented with acute right-sided costovertebral angle tenderness and chills with a positive UA and CT abdomen/pelvis concerning for recently passed kidney stone; incedentally positive trichomonal antigen in the blood. Plan: - nausea control: zofran PRN - pain control: tylenol PRN + toradol PRN + morphine PRN - f/u UCx - ceftriaxone 1g daily, flagyl 500mg q8h - IVF - will do renal US if no improvement in pain within 24 hours to exclude worsening hydronephrosis - low threshold for urology c/s Full Code Heparin 5000U q8h Regular Diet
[2020-01-18] MEDS: HEPARIN SODIUM,PORCINE 5,000 UNIT/ML 1 ML VIAL SQ SCH (17:15)
[2020-01-18] MEDS: ACETAMINOPHEN TAB 325 MG TAB PO PRN (17:17)
[2020-01-18] MEDS: KETOROLAC 30 MG/ML 1 ML VIAL IVP PRN (17:17)
[2020-01-18] MEDS: metroNIDAZOLE-NS PMX 500 MG in SALINE 1 100ML.BAG IVPB SCH (23:19)
[2020-01-19] MEDS: ACETAMINOPHEN TAB 325 MG TAB PO PRN (01:16)
[2020-01-19] MEDS: KETOROLAC 30 MG/ML 1 ML VIAL IVP PRN ×2 (01:16→10:22)
[2020-01-19] MEDS: HEPARIN SODIUM,PORCINE 5,000 UNIT/ML 1 ML VIAL SQ SCH ×2 (01:17→08:06)
[2020-01-19] MEDS: SODIUM CHLORIDE 0.9% 1,000 ML IV SCH ×2 (05:06→05:17)
[2020-01-19] MEDS: MORPHINE SULFATE 2 MG/ML SYRINGE IVP PRN ×2 (05:18→08:15)
[2020-01-19 06:07] LABS: Basophils % (A) 0 %; Eosinophils # (A) 0.1 k/uL (0-0.7); Eosinophils % (A) 2 %; HCT 32.9 % (34.0-46.0); HGB 10.5 gm/dL (11.4-16.0); Lymphocytes # (A) 0.9 k/uL (1.0-4.8); Lymphocytes % (A) 16 %; MCV 96.8 fL (80.0-100.0); Mean Platelet Volume 10.3; Monocytes # (A) 0.4 k/uL (0-1.0); Monocytes % (A) 7 %; Neutrophils % (A) 72 %; Platelet Count 160 k/uL (150-450); WBC 5.6 k/uL (3.8-10.6)
[2020-01-19 06:21] LABS: African American GFR (CKD) >90 (>60 ml/min/1.73 sqM); Anion Gap 3 mmol/L; Blood Urea Nitrogen 16 mg/dL (7-17); Carbon Dioxide 24 mmol/L (22-30); Chloride 111 mmol/L (98-107); Glucose 99 mg/dL (74-99); Magnesium 1.8 mg/dL (1.6-2.3); Non-African American GFR(CKD) >90 (>60 ml/min/1.73 sqM); Potassium 3.9 mmol/L (3.5-5.1); Sodium 138 mmol/L (137-145)
[2020-01-19 08:11] VITALS: BP 102/63; PULSE 90; RESP 12; TEMP 98.5
[2020-01-19] MEDS: metroNIDAZOLE-NS PMX 500 MG in SALINE 1 100ML.BAG IVPB SCH (08:12)
--- NOTE | 2020-01-19 11:09 | P.DS ---
Providers Date of admission: 01/18/20 14:34 Attending physician: Deisi Roberts MD Primary care physician: Stated None Hospital Course: 1. Acute pyelonephritis, right-sided 2. Trichomonal infection 29-year-old woman with history of kidney stones presented with acute right-sided costovertebral angle tenderness and chills with a positive UA and CT abdomen/pelvis concerning for recently passed kidney stone; incedentally positive trichomonal antigen in the blood. She was started on ceftriaxone and flagyl with tylenol/toradol/morphine PRN for pain control. She improved significantly after one night of antibiotics, and was discharged with total 8 day course of cipro/flagyl for pyelo/urethritis. STI lab results pending at the time of discharge. Instructed to f/u with her PCP, given 1 week work note, and advised to avoid NSAIDs for pain control, and to stick with tylenol PRN. Should she have worsening flank pain, I asked that she return to the hospital for further care. Patient Condition at Discharge: Stable Plan - Discharge Summary Discharge Rx Participant: Yes New Discharge Prescriptions: New Ciprofloxacin HCl [Cipro] 500 mg PO BID 6 Days #6 tab metroNIDAZOLE [Flagyl] 500 mg PO TID 6 Days tab Acetaminophen Tab [Tylenol] 650 mg PO Q6HR PRN tab PRN Reason: Mild Pain Or Fever > 100.5 Discontinued Ibuprofen [Motrin Ib] 400 mg PO Q8H PRN PRN Reason: Pain Or Fever > 100.5 Acetaminophen Tab [Tylenol Tab] 1,000 mg PO Q6HR PRN PRN Reason: Pain Or Fever > 100.5 Discharge Medication List Acetaminophen Tab [Tylenol] 650 mg PO Q6HR PRN tab 01/19/20 [Rx] Ciprofloxacin HCl [Cipro] 500 mg PO BID 6 Days #6 tab 01/19/20 [Rx] metroNIDAZOLE [Flagyl] 500 mg PO TID 6 Days tab 01/19/20 [Rx] Follow up Appointment(s)/Referral(s): None,Stated [Primary Care Provider] - 1-2 days Patient Instructions/Handouts: Urinary Tract Infection in Women (DC) Discharge/Stand Alone Forms: Work/Release Restrictions Form Discharge Disposition: HOME SELF-CARE
[2020-01-19 15:53] LABS: C. trachomatis,PCR Negative (Neg,Equiv); Chlamydia trachomatis Source Vagina; N. gonorrhoeae,PCR Negative (Neg,Equiv); Neisseria Source Vagina
== END 2020-01-19 10:49 | disposition home or self-care (01) ==
LOC: EC 10:30 → 1SOBS 14:34
PROVIDERS: ADMIT Internal Medicine; ATTEND Internal Medicine
DX: N10 Acute pyelonephritis (principal); A59.9 Trichomoniasis, unspecified; N39.0 Urinary tract infection, site not specified; J45.20 Mild intermittent asthma, uncomplicated; M41.9 Scoliosis, unspecified; F17.200 Nicotine dependence, unspecified, uncomplicated; Z98.890 Other specified postprocedural states; Z90.49 Acquired absence of other specified parts of digestive tract; Z87.442 Personal history of urinary calculi; Z86.19 Personal history of other infectious and parasitic diseases; F41.9 Anxiety disorder, unspecified; F32.9 Major depressive disorder, single episode, unspecified; Z82.5 Family history of asthma and other chronic lower respiratory diseases; Z84.89 Family history of other specified conditions; Z80.8 Family history of malignant neoplasm of other organs or systems; Z79.51 Long term (current) use of inhaled steroids; Z79.52 Long term (current) use of systemic steroids; Z79.899 Other long term (current) drug therapy; Z88.8 Allergy status to other drugs, medicaments and biological substances
CPT/HCPCS: 96361 ×3; 96366; 96367; 96368; 96376 ×2; 96365; 96375; 99285; 36415; 80053; 80048; 83605; 83735; 85025 ×2; 81001; 81025; 87808; 87491; 87591; 87070; 74176; G0378 ×2; J0696 ×2; J1885 ×2; J2270 ×2

== ENCOUNTER 2020-06-13 09:27 | Emergency (ER) | payer OTHER ==
[2020-06-13 09:45] VITALS: TEMP 98.7
[2020-06-13] MEDS ORDERED: IPRATROPIUM-ALBUTEROL 3 ML NEB INHALATION STA (10:19)
[2020-06-13] MEDS ORDERED: methylPREDNISolone SOD SUCCI 125 MG/2 ML VIAL IV STA (10:19)
--- NOTE | 2020-06-13 10:23 | XR ---
EXAMINATION TYPE: XR chest 2V DATE OF EXAM: 06/13/2020 COMPARISON: 02/03/2018 TECHNIQUE: PA and lateral views submitted. HISTORY: Cough FINDINGS: The lungs are clear and there is no pneumothorax, pleural effusion, or focal pneumonia. Heart size normal. No overt failure. IMPRESSION: 1. No acute process.
[2020-06-13] MEDS ORDERED: LORazepam 2 MG/ML INJ IV STA (10:27)
--- NOTE | 2020-06-13 10:29 | ED ---
General Adult HPI - General Chief complaint: Shortness of Breath Stated complaint: SOB, cough, fever Time Seen by Provider: 06/13/20 10:04 Source: patient, RN notes reviewed Mode of arrival: ambulatory Limitations: no limitations - History of Present Illness Initial comments: This a 29-year-old female presents emergency department she went shortness of b reath. Patient states started with cough congestion and achiness a few days ago. No reported fevers or chills. Patient states that she has had a use her nebulizer 3 times yesterday. Patient states is making her feel very anxious. Denies any chest pain no headache no dizziness. Denies any nausea and diarrhea constipation no chance . Patient does have history of asthma. Patient had no sick contacts. - Related Data Home Medications Medication Instructions Recorded Confirmed Albuterol Inhaler [Ventolin Hfa 2 puff INHALATION RT-QID PRN 06/13/20 06/13/20 Inhaler] Albuterol Nebulized [Ventolin 2.5 mg INHALATION RT-BID 06/13/20 06/13/20 Nebulized] Previous Rx's Medication Instructions Recorded predniSONE 50 mg PO DAILY #5 tab 06/13/20 Allergies Allergy/AdvReac Type Severity Reaction Status Date / Time progesterone Allergy Rash/Hives Verified 06/13/20 10:47 Review of Systems ROS Statement: Those systems with pertinent positive or pertinent negative responses have been documented in the HPI. ROS Other: All systems not noted in ROS Statement are negative. Past Medical History Past Medical History: Asthma Additional Past Medical History / Comment(s): Bronchial asthma mild intermittent in nature, ovarian cyst, scoliosis , kidney stones, history of UTI with Klebsiella and E. coli History of Any Multi-Drug Resistant Organisms: None Reported Past Surgical History: Appendectomy, Section, Orthopedic Surgery Additional Past Surgical History / Comment(s): OVARIAN CYST SURGERY, ORTHO SURGERY TO RIGHT HIP, RIGHT KNEE, RIGHT FOOT, right foot 2nd toe Past Anesthesia/Blood Transfusion Reactions: Postoperative Nausea & Vomiting (PONV) Past Psychological History: Anxiety, Depression Smoking Status: Current every day smoker Past Alcohol Use History: None Reported Past Drug Use History: None Reported - Past Family History Daughter(s) Family Medical History: Asthma Additional Family Medical History / Comment(s): tracheomalacia Brother(s) Additional Family Medical History / Comment(s): hydrocephalus Father History Unknown: Yes Additional Family Medical History / Comment(s): BONE CANCER General Exam Limitations: no limitations General appearance: alert, in no apparent distress, anxious, other (Vitals reviewed, pulse ox 100%, patient's in no signs of distress.) Head exam: Present: atraumatic, normocephalic, normal inspection Eye exam: Present: normal appearance, PERRL, EOMI. Absent: scleral icterus, conjunctival injection, periorbital swelling ENT exam: Present: normal exam, normal oropharynx, mucous membranes moist, TM's normal bilaterally Neck exam: Present: normal inspection, full ROM. Absent: tenderness, meningismus, lymphadenopathy Respiratory exam: Present: normal lung sounds bilaterally. Absent: respiratory distress, wheezes, rales, rhonchi, stridor Cardiovascular Exam: Present: regular rate, normal rhythm, normal heart sounds. Absent: systolic murmur, diastolic murmur, rubs, gallop, clicks GI/Abdominal exam: Present: soft, normal bowel sounds. Absent: distended, tenderness, guarding, rebound, rigid Extremities exam: Absent: pedal edema, calf tenderness Neurological exam: Present: alert, oriented X3, CN II-XII intact Skin exam: Present: warm, dry, intact, normal color. Absent: rash Course Vital Signs 06/13/20 06/13/20 06/13/20 09:43 10:35 10:43 Temperature 98.7 F Pulse Rate 69 97 92 Respiratory 22 18 Rate Blood Pressure 124/92 105/72 O2 Sat by Pulse 100 98 Oximetry 06/13/20 06/13/20 11:01 11:10 Temperature Pulse Rate 90 100 Respiratory 18 Rate Blood Pressure 102/58 O2 Sat by Pulse 100 Oximetry Medical Decision Making - Medical Decision Making X-rays negative, Covid test is negative. Patient is greatly improved after DuoNeb treatment, steroids. Patient discharged on prednisone for asthma exacerbation. Patient is a viral infection. - Lab Data Lab Results 06/13/20 Range/Units 10:30 Coronavirus (PCR) Not Detected (Not Detectd) Disposition Clinical Impression: Asthma exacerbation Disposition: HOME SELF-CARE Condition: Stable Instructions (If sedation given, give patient instructions): Asthma (ED) Additional Instructions: Please return to the Emergency Department if symptoms worsen or any other concerns. Prescriptions: predniSONE 50 mg PO DAILY #5 tab Is patient prescribed a controlled substance at d/c from ED?: No Referrals: None,Stated [Primary Care Provider] - 1-2 days Time of Disposition: 11:44
[2020-06-13 10:36] VITALS: RESP 18
[2020-06-13 11:55] VITALS: BP 114/77; PULSE 115
== END 2020-06-13 11:55 | disposition home or self-care (01) ==
LOC: EC 09:27
DX: J45.901 Unspecified asthma with (acute) exacerbation (principal); F17.200 Nicotine dependence, unspecified, uncomplicated; Z79.51 Long term (current) use of inhaled steroids; Z88.8 Allergy status to other drugs, medicaments and biological substances; Z90.49 Acquired absence of other specified parts of digestive tract
CPT/HCPCS: 94640; 87635; 71046; 99285; 96374; 96375; J2060; J2930

== ENCOUNTER 2021-01-19 06:53 | Emergency (ER) | payer OTHER ==
[2021-01-19 07:00] VITALS: TEMP 98.3
[2021-01-19] MEDS ORDERED: SODIUM CHLORIDE 0.9% 1,000 ML IV ONE (07:11)
--- NOTE | 2021-01-19 07:16 | ED ---
General Adult HPI - General Chief complaint: Vaginal Bleeding Stated complaint: Vaginal Bleeding,7wks preg Time Seen by Provider: 01/19/21 07:06 Source: patient Mode of arrival: ambulatory Limitations: no limitations - History of Present Illness Initial comments: 30 year-old female patient presents to the emergency department for evaluation of vaginal bleeding. Patient is 7 weeks , last period 11/29/20. Positive home test 12/31/20. Patient will be seeing Dr. Merritt. Patient has had no ultrasounds for this . She is A0, she has had one twin . Bleeding started at 0600, she soaked through her pants. States she has passed some small blood clots. She denies any significant abdominal pain or cramping. Denies any hematuria, dysuria, urinary urgency, or frequency. Denies any concern for STI. States she did have a lot of vomiting today. Patient denies any recent rash, fever, chills, cough, shortness of breath, chest pain, diarrhea, constipation, back pain, numbness, tingling, dizziness, weakness, headache, visual changes, or any other complaints. - Related Data Home Medications Medication Instructions Recorded Confirmed Albuterol Inhaler [Ventolin Hfa 2 puff INHALATION RT-QID PRN 06/13/20 01/19/21 Inhaler] Allergies Allergy/AdvReac Type Severity Reaction Status Date / Time progesterone Allergy Rash/Hives Verified 01/19/21 08:39 Review of Systems ROS Statement: Those systems with pertinent positive or pertinent negative responses have been documented in the HPI. ROS Other: All systems not noted in ROS Statement are negative. Past Medical History Past Medical History: Asthma Additional Past Medical History / Comment(s): Bronchial asthma mild intermittent in nature, ovarian cyst, scoliosis , kidney stones, history of UTI with Klebsiella and E. coli History of Any Multi-Drug Resistant Organisms: None Reported Past Surgical History: Appendectomy, Section, Orthopedic Surgery Additional Past Surgical History / Comment(s): OVARIAN CYST SURGERY, ORTHO SURGERY TO RIGHT HIP, RIGHT KNEE, RIGHT FOOT, right foot 2nd toe Past Anesthesia/Blood Transfusion Reactions: Postoperative Nausea & Vomiting (PONV) Past Psychological History: Anxiety, Depression Smoking Status: Current every day smoker Past Alcohol Use History: None Reported Past Drug Use History: None Reported - Past Family History Daughter(s) Family Medical History: Asthma Additional Family Medical History / Comment(s): tracheomalacia Brother(s) Additional Family Medical History / Comment(s): hydrocephalus Father History Unknown: Yes Additional Family Medical History / Comment(s): BONE CANCER General Exam Limitations: no limitations General appearance: alert, in no apparent distress, other (This is a well- developed, well-nourished adult female patient in no acute distress. Vital signs upon presentation are temperature 98.3F, pulse 88, respirations 22, blood pressure 84/54, pulse ox 100% on room air) Eye exam: Present: normal appearance, PERRL, EOMI. Absent: scleral icterus, conjunctival injection, periorbital swelling ENT exam: Present: normal exam, normal oropharynx, mucous membranes moist Respiratory exam: Present: normal lung sounds bilaterally. Absent: respiratory distress, wheezes, rales, rhonchi, stridor Cardiovascular Exam: Present: regular rate, normal rhythm, normal heart sounds. Absent: systolic murmur, diastolic murmur, rubs, gallop, clicks GI/Abdominal exam: Present: soft, normal bowel sounds. Absent: distended, tenderness, guarding, rebound, rigid Neurological exam: Present: alert, oriented X3, CN II-XII intact Psychiatric exam: Present: normal affect, normal mood Skin exam: Present: warm, dry, intact, normal color. Absent: rash Course Vital Signs 01/19/21 01/19/21 06:56 07:37 Temperature 98.3 F Pulse Rate 88 90 Respiratory 22 18 Rate Blood Pressure 84/54 103/66 O2 Sat by Pulse 100 99 Oximetry Medical Decision Making - Medical Decision Making 30-year-old female patient presents to the emergency department today for evalu ation of vaginal bleeding in early . Physical examination did reveal soft nontender abdomen. Labs reviewed and did feel hCG level of 71,912. ABO Rh is A+. Ultrasound was obtained and showed measuring 6 weeks 4 days with a heart rate of 118. There is a sizable debby-gestational bleed measuring 2.3 cm. I did discuss findings and results with the patient. Did discuss threatened miscarriage versus subchorionic bleed. She'll be given a lab slip to have repeat hCG drawn in 2 days. She is instructed to follow-up with [facility] for recheck as soon as possible. Return parameters were discussed in detail. She verbalizes understanding and agrees with this plan. Case discussed with my attending Dr. Gonzalez. - Lab Data Result diagrams: 01/19/21 07:36 01/19/21 07:36 Lab Results 01/19/21 01/19/21 01/19/21 Range/Units 07:36 07:36 07:36 WBC 5.6 (3.8-10.6) k/uL RBC 3.80 (3.80-5.40) m/uL Hgb 12.8 (11.4-16.0) gm/dL Hct 37.0 (34.0-46.0) % MCV 97.4 (80.0-100.0) fL MCH 33.6 (25.0-35.0) pg MCHC 34.5 (31.0-37.0) g/dL RDW 11.4 L (11.5-15.5) % Plt Count 173 (150-450) k/uL MPV 9.0 Neutrophils % 66 % Lymphocytes % 24 % Monocytes % 5 % Eosinophils % 1 % Basophils % 0 % Neutrophils # 3.7 (1.3-7.7) k/uL Lymphocytes # 1.3 (1.0-4.8) k/uL Monocytes # 0.3 (0-1.0) k/uL Eosinophils # 0.1 (0-0.7) k/uL Basophils # 0.0 (0-0.2) k/uL Sodium 136 L (137-145) mmol/L Potassium 3.8 (3.5-5.1) mmol/L Chloride 108 H (98-107) mmol/L Carbon Dioxide 21 L (22-30) mmol/L Anion Gap 7 mmol/L BUN 10 (7-17) mg/dL Creatinine 0.44 L (0.52-1.04) mg/dL Est GFR (CKD-EPI)AfAm >90 (>60 ml/min/1.73 sqM) Est GFR (CKD-EPI)NonAf >90 (>60 ml/min/1.73 sqM) Glucose 94 (74-99) mg/dL Calcium 9.2 (8.4-10.2) mg/dL Total Bilirubin 0.4 (0.2-1.3) mg/dL AST 18 (14-36) U/L ALT 10 (4-34) U/L Alkaline Phosphatase 41 (38-126) U/L Total Protein 6.0 L (6.3-8.2) g/dL Albumin 3.9 (3.5-5.0) g/dL HCG, Quant 23619.9 mIU/mL Urine Color Urine Appearance (Clear) Urine pH (5.0-8.0) Ur Specific [place] (1.001-1.035) Urine Protein (Negative) Urine Glucose (UA) (Negative) Urine Ketones (Negative) Urine Blood (Negative) Urine Nitrite (Negative) Urine Bilirubin (Negative) Urine Urobilinogen (<2.0) mg/dL Ur Leukocyte Esterase (Negative) Urine RBC (0-5) /hpf Urine WBC (0-5) /hpf Ur Squamous Epith Cells (0-4) /hpf Urine Mucus (None) /hpf Blood Type A Positive Blood Type Recheck A Pos Bld Type Recheck Status No 01/19/21 Range/Units 08:00 WBC (3.8-10.6) k/uL RBC (3.80-5.40) m/uL Hgb (11.4-16.0) gm/dL Hct (34.0-46.0) % MCV (80.0-100.0) fL MCH (25.0-35.0) pg MCHC (31.0-37.0) g/dL RDW (11.5-15.5) % Plt Count (150-450) k/uL MPV Neutrophils % % Lymphocytes % % Monocytes % % Eosinophils % % Basophils % % Neutrophils # (1.3-7.7) k/uL Lymphocytes # (1.0-4.8) k/uL Monocytes # (0-1.0) k/uL Eosinophils # (0-0.7) k/uL Basophils # (0-0.2) k/uL Sodium (137-145) mmol/L Potassium (3.5-5.1) mmol/L Chloride (98-107) mmol/L Carbon Dioxide (22-30) mmol/L Anion Gap mmol/L BUN (7-17) mg/dL Creatinine (0.52-1.04) mg/dL Est GFR (CKD-EPI)AfAm (>60 ml/min/1.73 sqM) Est GFR (CKD-EPI)NonAf (>60 ml/min/1.73 sqM) Glucose (74-99) mg/dL Calcium (8.4-10.2) mg/dL Total Bilirubin (0.2-1.3) mg/dL AST (14-36) U/L ALT (4-34) U/L Alkaline Phosphatase (38-126) U/L Total Protein (6.3-8.2) g/dL Albumin (3.5-5.0) g/dL HCG, Quant mIU/mL Urine Color Light Yellow Urine Appearance Clear (Clear) Urine pH 6.5 (5.0-8.0) Ur Specific [place] 1.008 (1.001-1.035) Urine Protein Negative (Negative) Urine Glucose (UA) Negative (Negative) Urine Ketones Negative (Negative) Urine Blood Large H (Negative) Urine Nitrite Negative (Negative) Urine Bilirubin Negative (Negative) Urine Urobilinogen <2.0 (<2.0) mg/dL Ur Leukocyte Esterase Negative (Negative) Urine RBC 1 (0-5) /hpf Urine WBC <1 (0-5) /hpf Ur Squamous Epith Cells 2 (0-4) /hpf Urine Mucus Rare H (None) /hpf Blood Type Blood Type Recheck Bld Type Recheck Status - Radiology Data Radiology results: report reviewed, image reviewed Ultrasound of the fetus was obtained. Report was reviewed in its entirety. Impression by Dr. Plasencia shows single live intrauterine with gestational age of 6 weeks 4 days by crown rump length. In addition is borderline bradycardia for gestation of the size, 1 18 bpm. Sizable inferior Gavino gestational bleed measuring 2.3 cm. Disposition Clinical Impression: Threatened miscarriage Disposition: HOME SELF-CARE Condition: Good Instructions (If sedation given, give patient instructions): Threatened Miscarriage (ED) Additional Instructions: Call Dr. Merritt's office for further instructions and appointment. Return in 2 days to have repeat hormone level. Return to the emergency department for any new, worsening, or concerning symptoms. Is patient prescribed a controlled substance at d/c from ED?: No Referrals: None,Stated [Primary Care Provider] - 1-2 days Time of Disposition: 09:04
[2021-01-19 07:38] VITALS: RESP 18
[2021-01-19 07:48] LABS: Basophils % (A) 0 %; Eosinophils # (A) 0.1 k/uL (0-0.7); Eosinophils % (A) 1 %; HGB 12.8 gm/dL (11.4-16.0); Lymphocytes # (A) 1.3 k/uL (1.0-4.8); Lymphocytes % (A) 24 %; MCH 33.6 pg (25.0-35.0); MCHC 34.5 g/dL (31.0-37.0); MCV 97.4 fL (80.0-100.0); Monocytes # (A) 0.3 k/uL (0-1.0); Monocytes % (A) 5 %; Neutrophils # (A) 3.7 k/uL (1.3-7.7); Neutrophils % (A) 66 %; Platelet Count 173 k/uL (150-450); RDW 11.4 % (11.5-15.5); WBC 5.6 k/uL (3.8-10.6)
[2021-01-19 08:02] LABS: ALT 10 U/L (4-34); AST 18 U/L (14-36); African American GFR (CKD) >90 (>60 ml/min/1.73 sqM); Albumin 3.9 g/dL (3.5-5.0); Alkaline Phosphatase 41 U/L (38-126); Anion Gap 7 mmol/L; Blood Urea Nitrogen 10 mg/dL (7-17); Calcium 9.2 mg/dL (8.4-10.2); Carbon Dioxide 21 mmol/L (22-30); Chloride 108 mmol/L (98-107); Glucose 94 mg/dL (74-99); Non-African American GFR(CKD) >90 (>60 ml/min/1.73 sqM); Potassium 3.8 mmol/L (3.5-5.1); Sodium 136 mmol/L (137-145); Total Bilirubin 0.4 mg/dL (0.2-1.3)
[2021-01-19 08:28] LABS: Appearance,Urine Clear (Clear); Bilirubin,Urine Negative (Negative); Blood,Urine Large (Negative); Color,Urine Light Yellow; Glucose,Urine (UA) Negative (Negative); Ketones,Urine Negative (Negative); Leukocyte Esterase,Urine Negative (Negative); Mucus,Urine Rare /hpf; Nitrite,Urine Negative (Negative); PH, Urine 6.5 (5.0-8.0); Protein,Urine Negative (Negative); RBC,Urine 1 /hpf (0-5); Specific Gravity,Urine 1.008 (1.001-1.035); Squamous Epithelial Cell,Urine 2 /hpf (0-4); Urobilinogen,Urine <2.0 mg/dL (<2.0); WBC,Urine <1 /hpf (0-5)
--- NOTE | 2021-01-19 08:28 | US ---
EXAMINATION TYPE: Ultrasound OB <= 14 week fetus DATE OF EXAM: 01/19/2021 8:12 AM COMPARISON: NONE CLINICAL HISTORY: 30-year-old female Vaginal bleeding; 7 weeks. Bleeding. EXAM PERFORMED: Transabdominal (TA) FINDINGS: EXAM MEASUREMENTS: GESTATIONAL AGE / DATING Physician Established: Not yet established Dates by LMP: (7 weeks/2 days) EDC: 09/05/2021 Dates by First Scan: No previous this is first scan Dates by Current Scan for: (6 weeks/4 days +/- 4 days) EDC: 09/10/2021 MATERNAL ANATOMY Uterus: 10.1 x 6.3 x 5.6 cm Right Ovary: 4.2 x 3.0 x 3.4 cm. Simple cystic lesion = 3.1 x 2.5 x 2.3 cm. Left Ovary: 3.5 x 3.6 x 3.3 cm Simple cystic lesion = 3.3 x 3.1 x 2.7 cm. Post CDS / Adnexa: free fluid adjacent to right ovary Presence of free fluid: adjacent to right ovary Presence of subchorionic bleed: 2.3 x 2.6 x 1.0 cm GESTATION / SURVEY CRL: 0.7 cm (6 weeks/4 days) MSD: seen, not measured Yolk Sac (normal less than 6mm): 1.9 mm Heart Rate: 118 bpm Rhythm: Normal IUP: Viable IUP Date of LMP: 11/29/2020, Beta HcG (if available): Not available at this time [facility] [employer] notes: Single live IUP measuring 6 weeks 4 days. IMPRESSION: 1. Single live intrauterine with gestational age of 6 weeks 4 days by CRL. Allowing for lico iation, this is still a day smaller (discordant) than expected based on LMP. 2. In addition, there is borderline bradycardia for a gestation of this size, 118 BPM. 3. Sizable inferior perigestational bleed measuring 2.3 cm. 4. Close clinical surveillance recommended to ensure ongoing viability.
[2021-01-19 08:46] LABS: HCG,Quantitative Serum 71912.9 mIU/mL
[2021-01-19 09:23] VITALS: BP 99/53; PULSE 87
== END 2021-01-19 09:23 | disposition home or self-care (01) ==
LOC: EC 06:53
DX: O20.0 Threatened abortion (principal); O99.511 Diseases of the respiratory system complicating pregnancy, first trimester; O99.341 Other mental disorders complicating pregnancy, first trimester; J45.909 Unspecified asthma, uncomplicated; F41.9 Anxiety disorder, unspecified; F32.9 Major depressive disorder, single episode, unspecified; F17.200 Nicotine dependence, unspecified, uncomplicated; Z3A.01 Less than 8 weeks gestation of pregnancy; Z87.442 Personal history of urinary calculi; Z87.440 Personal history of urinary (tract) infections; Z90.49 Acquired absence of other specified parts of digestive tract
CPT/HCPCS: 36415; 76801; 80053; 81001; 84702; 85025; 86900; 86901; 96360; 99284

== ENCOUNTER → 2021-01-25 | Outpatient (CLI) | payer OTHER ==
--- NOTE | 2021-01-25 13:44 | US ---
EXAMINATION TYPE: Transabdominal DATE OF EXAM: 01/25/2021 1:27 PM COMPARISON: US 01/19/2021 CLINICAL HISTORY: Z36 PREVIOUS ABN U/S. EXAM PERFORMED: Transabdominal (TA) EXAM MEASUREMENTS: GESTATIONAL AGE / DATING Physician Established: Not yet established Dates by LMP: 11/29/2020 (8 weeks/1 days) EDC: 09/05/2021 Dates by First Scan: (7 weeks/3 days) EDC: 09/10/2021 Dates by Current Scan for: (7 weeks/2 days) EDC: 09/11/2021 MATERNAL ANATOMY Uterus: 8.5 x 7.6 x 6.8 cm Right Ovary: 4.1 x 2.2 x 3.2 cm Left Ovary: 4.7 x 3.2 x 3.9 cm Post CDS / Adnexa: wnl Presence of free fluid: none Presence of corpus luteal cyst: cysts on both ovaries Presence of subchorionic bleed: 3.5 x 1.1 x 3.1 cm hypoechoic area adjacent to gestational sac. GESTATION / SURVEY CRL: 1.1 cm (7 weeks/2 days) Yolk Sac (normal less than 6mm): 0.3 cm Heart Rate: 139 bpm Rhythm: Normal IUP: Viable IUP Date of LMP: 11/29/2020 Beta HcG (if available): not available IMPRESSION: Viable IUP that correlates with prior US. Subchorionic bleed noted. Bilateral ovarian cysts, right 2. 4 x 1.9 x 2.1 cm and left 3.1 x 2.7 x 3.4 c .
== END | disposition home or self-care (01) ==
LOC: RADUSWWP 13:05
PROVIDERS: ATTEND Obstetrics & Gynecology
DX: O20.8 Other hemorrhage in early pregnancy (principal); O34.81 Maternal care for other abnormalities of pelvic organs, first trimester; N83.201 Unspecified ovarian cyst, right side; N83.202 Unspecified ovarian cyst, left side
CPT/HCPCS: 76801

== ENCOUNTER 2021-06-05 08:24 | Emergency (ER) | payer OTHER ==
[2021-06-05 08:29] VITALS: RESP 18; TEMP 98.2
[2021-06-05] MEDS ORDERED: SODIUM CHLORIDE 0.9% 2,000 ML IV ONE (08:52)
--- NOTE | 2021-06-05 09:34 | ED ---
General Adult HPI - General Chief complaint: Upper Respiratory Infection Stated complaint: fever/chest pain/27 weeks preg/contractions Time Seen by Provider: 06/05/21 08:31 Source: patient, RN notes reviewed Mode of arrival: ambulatory Limitations: no limitations - History of Present Illness Initial comments: 30-year-old female presents emergency Department chief complaint fever cough congestion bodyaches. Patient states she's had nausea vomiting. Patient is concerned about COVID-19. Patient states she is currently 27 weeks . She does complain of some mild abdominal cramping contractions. Patient states they've been waxing and waning. She denies any vaginal bleeding or vaginal discharge. Patient states that she did take some Tylenol a few hours prior arrival. - Related Data Home Medications Medication Instructions Recorded Confirmed Acetaminophen Tab [Tylenol Tab] 1,000 mg PO Q6HR PRN 06/05/21 06/05/21 Pnv,Calcium 72/Iron/Folic Acid 1 tab PO DAILY 06/05/21 06/05/21 [ Plus Tablet] Allergies Allergy/AdvReac Type Severity Reaction Status Date / Time progesterone Allergy Rash/Hives Verified 06/05/21 09:11 Review of Systems ROS Statement: Those systems with pertinent positive or pertinent negative responses have been documented in the HPI. ROS Other: All systems not noted in ROS Statement are negative. Past Medical History Past Medical History: Asthma Additional Past Medical History / Comment(s): Bronchial asthma mild intermittent in nature, ovarian cyst, scoliosis , kidney stones, history of UTI with Klebsiella and E. coli History of Any Multi-Drug Resistant Organisms: None Reported Past Surgical History: Appendectomy, Section, Orthopedic Surgery Additional Past Surgical History / Comment(s): OVARIAN CYST SURGERY, ORTHO SURGERY TO RIGHT HIP, RIGHT KNEE, RIGHT FOOT, right foot 2nd toe Past Anesthesia/Blood Transfusion Reactions: Postoperative Nausea & Vomiting (PONV) Past Psychological History: Anxiety, Depression Smoking Status: Former smoker Past Alcohol Use History: None Reported Past Drug Use History: None Reported - Past Family History Daughter(s) Family Medical History: Asthma Additional Family Medical History / Comment(s): tracheomalacia Brother(s) Additional Family Medical History / Comment(s): hydrocephalus Father History Unknown: Yes Additional Family Medical History / Comment(s): BONE CANCER General Exam Limitations: no limitations General appearance: alert, in no apparent distress Head exam: Present: atraumatic, normocephalic, normal inspection Eye exam: Present: normal appearance, PERRL, EOMI. Absent: scleral icterus, conjunctival injection, periorbital swelling ENT exam: Present: normal exam, normal oropharynx, mucous membranes moist Neck exam: Present: normal inspection, full ROM. Absent: tenderness, meningismus, lymphadenopathy Respiratory exam: Present: normal lung sounds bilaterally. Absent: respiratory distress, wheezes, rales, rhonchi, stridor Cardiovascular Exam: Present: normal rhythm, tachycardia, normal heart sounds. Absent: systolic murmur, diastolic murmur, rubs, gallop, clicks GI/Abdominal exam: Present: soft, normal bowel sounds. Absent: distended, tenderness, guarding, rebound, rigid Course Vital Signs 06/05/21 06/05/21 06/05/21 08:26 09:46 10:14 Temperature 98.2 F Pulse Rate 119 H 114 H Respiratory 18 18 18 Rate Blood Pressure 121/70 99/65 O2 Sat by Pulse 98 99 Oximetry - Reevaluation(s) Reevaluation #1: 06/05/21 09:33 Upon arrival labor and delivery was contacted. Medical Decision Making - Medical Decision Making Patient is positive for covid 19. Patient will receive monoclonal antibodies. Patient was hydrated. Patient did have heart tones within normal limits. OB nurse did contact Dr. Merritt recommended fluid hydration patient return for any worsening change in symptoms. - Lab Data Lab Results 06/05/21 06/05/21 Range/Units 09:10 09:10 Coronavirus (PCR) Detected A (Not Detectd) Influenza Type A RNA Not Detected (Not Detectd) Influenza Type B (PCR) Not Detected (Not Detectd) Disposition Clinical Impression: COVID-19 Disposition: HOME SELF-CARE Condition: Stable Instructions (If sedation given, give patient instructions): Coronavirus Disease 2019 (COVID-19) Additional Instructions: Please return to the Emergency Department if symptoms worsen or any other concerns. Is patient prescribed a controlled substance at d/c from ED?: No Referrals: None,Stated [Primary Care Provider] - 1-2 days Time of Disposition: 11:10
[2021-06-05] MEDS ORDERED: ONDANSETRON 4 MG/2 ML VIAL IVP STA (10:17)
[2021-06-05] MEDS ORDERED: diphenhydrAMINE 50 MG/ML 1 ML VIAL IVP STA (11:10)
[2021-06-05] MEDS ORDERED: METOCLOPRAMIDE 5 MG/ML 2 ML VIAL IVP STA (11:10)
[2021-06-05] MEDS ORDERED: SODIUM CHLORIDE 0.9% 50 ML IVPB ONE (11:30)
[2021-06-05] MEDS ORDERED: BAMLANIVIMAB (EUA) 700 MG, ETESEVIMAB (EUA) 1,400 MG in SODIUM CHLORIDE 0.9% 100 ML IVPB ONE (11:30)
[2021-06-05 13:50] VITALS: BP 98/63; PULSE 108
== END 2021-06-05 13:53 | disposition home or self-care (01) ==
LOC: EC 08:24
DX: O98.512 Other viral diseases complicating pregnancy, second trimester (principal); O26.892 Other specified pregnancy related conditions, second trimester; U07.1 COVID-19; J45.909 Unspecified asthma, uncomplicated; F41.9 Anxiety disorder, unspecified; F32.A Depression, unspecified; Z3A.27 27 weeks gestation of pregnancy; Z87.442 Personal history of urinary calculi; Z87.440 Personal history of urinary (tract) infections; Z90.49 Acquired absence of other specified parts of digestive tract; Z87.891 Personal history of nicotine dependence
CPT/HCPCS: 96361; 96374; 96375; 99284; M0245; 87502; 87635

== ENCOUNTER 2021-08-21 20:24 | Outpatient (CLI) | payer OTHER ==
[2021-08-21] MEDS ORDERED: ONDANSETRON 4 MG/2 ML VIAL IVP STA (21:16)
[2021-08-21] MEDS: LACTATED RINGERS 1,000 ML IV SCH ×3 (21:25→23:50)
[2021-08-21 23:39] VITALS: BP 104/63; PULSE 119; RESP 16; TEMP 98.1
--- NOTE | 2021-09-01 12:37 | P.MSEPDOC ---
Presenting Problems - Arrival Data Date of Arrival on Unit: 08/21/21 Time of Arrival on Unit: 20:24 Mode of Transport: Wheelchair - Complaint OB-Reason for Admission/Chief Complaint: Other Comment: Nausea, vomiting, and diarrhea x1 day, UC's Medical History - Information : 4 Para: 3 Term: 1 : 1 Abortions: Spontaneous or Elective: 1 Number of Living Children: 3 - Gestational Age Gestational Age by RANJEET (wks/days): 37 Weeks and 6 Days Review of Systems - Review of Systems Constitutional: No problems Breast: No problems ENT: No problems Cardiovascular: No problems Respiratory: No problems Gastrointestinal: No problems Genitourinary: No problems Musculoskeletal: No problems Neurological: No problems Skin: No problems Vital Signs - Temperature Temperature: 98.1 F Temperature Source: Oral - Pulse Right Pulse Rate: 119 Pulse Assessment Method: Pulse Oximetry - Respirations Respiratory Rate: 16 Oxygen Delivery Method: Room Air O2 Sat by Pulse Oximetry: 99 - Blood Pressure Right Arm Blood Pressure: 104/63 Blood Pressure Mean: 76 Blood Pressure Source: Automatic Cuff Medical Screen Scoring - Cervical Exam Dilation (cm): 0 Effacement (%): 80 Station: -2 Membranes: Intact - Uterine Contractions Frequency From (mins): 4 Frequency To (mins): 6 Duration From (seconds): 50 Duration To (seconds): 70 Intensity: Mild Resting: Soft to palpation - Assessment - Baby A Baseline FHR: 150 Heart Rate - NICHD Category: Category I (Normal) NST: Reactive Physician Notification - Physician Notified Physician Notified Date: 08/21/21 Physician Notified Time: 21:08 Physician: Lorie Dejesus New Order Received: Yes Maternal Triage Index - Maternal Triage Index Presenting for scheduled procedure w/no complaint: No - Stat/Priority 1 Stat Priority 1: No - Urgent/Priority 2 Urgent Priority 2: No - Prompt/Priority 3 Prompt Priority 3: No - Non-Urgent/Priority 4 Non-Urgent Priority 4: Yes Criteria Met for Priority 4: Dr. Dejesus was called and notified of pt's arrival and c/o contractions, n/v. and diarreha all day since 1 am this morning, discussed FHT's, pt's pulse, cervical. exam, negative amniosure, orders to give patient a liter of fluid IV, and 4 mg of zofran. iv, once pt's pulse and FHT's come back down in wnl, pt may be discharged home with. instructions to follow up with Dr. Merritt on at her scheduled appt Disposition - Disposition OB Disposition: Discharge to home Discharge Date: 08/21/21 Discharge Time: 23:45 I agree with the RN Medical Screening Exam: Yes Case reviewed; plan agreed upon as documented in EMR&OBIX.: Yes Diagnosis: INFECTIOUS GASTROENTERITIS AND COLITIS, UNSPECIFIED
== END 2021-08-21 23:45 | disposition home or self-care (01) ==
LOC: FBPOP 20:24
PROVIDERS: ATTEND Obstetrics & Gynecology
DX: O99.613 Diseases of the digestive system complicating pregnancy, third trimester (principal); A09 Infectious gastroenteritis and colitis, unspecified; Z3A.37 37 weeks gestation of pregnancy; Z88.8 Allergy status to other drugs, medicaments and biological substances
CPT/HCPCS: 59025; 96361; 96374; 84112; G0463; J2405; 96360; 99214

== ENCOUNTER 2021-08-31 05:59 | Inpatient (IN) | payer OTHER ==
--- NOTE | 2021-08-30 20:04 | P.HPOB ---
History of Present Illness H&P Date: 08/30/21 Chief Complaint: Repeat section with bilateral tubal ligation This is a 31 y.o. female, 4, para 1113, with an estimated date of confinement of 09/05/2021, estimated gestational age of 39-2/7 weeks, who presents for scheduled repeat section with bilateral partial salpingectomy for family planning. She is feeling irregular contractions and pressure. She has been following with MFM due to circumvallate placenta and marginal cord insertion. She has been doing surveillance. labs: Hepatitis B surface antigen-neg RPR-NR Rubella-immune Blood type-A+ Antibody screen-negative Hemoglobin-12.6 1 hr. GTT-99 GBS-neg GC/Chlamydia/Trich-neg OB Hx: . History of 1 section for twins at 32 weeks, 1 repeat at term and 1 miscarriage. Driver Trainee Hx: History of chlamydia treated 2007. Social Hx: Single. 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 Review of Systems Constitutional: Denies chills, Denies fever Eyes: denies blurred vision, denies pain Ears, nose, mouth and throat: Denies headache, Denies sore throat Cardiovascular: Denies chest pain, Denies shortness of breath Respiratory: Denies cough Gastrointestinal: Reports abdominal pain (irregular contractions) Genitourinary: Reports pelvic pain, Reports Integumentary: Denies pruritus, Denies rash Neurological: Denies numbness, Denies weakness Psychiatric: Denies anxiety, Denies depression Past Medical History Past Medical History: Asthma Additional Past Medical History / Comment(s): Bronchial asthma mild intermittent in nature, ovarian cyst, scoliosis , kidney stones, history of UTI with Klebsiella and E. coli History of Any Multi-Drug Resistant Organisms: None Reported Past Surgical History: Appendectomy, Section (x2), Orthopedic Surgery Additional Past Surgical History / Comment(s): Laparoscopy-drainage of ovarian cysts-2010, ORTHO SURGERY TO RIGHT HIP, RIGHT KNEE, RIGHT FOOT, right foot 2nd toe Past Anesthesia/Blood Transfusion Reactions: Postoperative Nausea & Vomiting (PONV) Past Psychological History: Anxiety, Depression Smoking Status: Former smoker Past Alcohol Use History: None Reported Past Drug Use History: None Reported - Past Family History Daughter(s) Family Medical History: Asthma Additional Family Medical History / Comment(s): tracheomalacia Brother(s) Additional Family Medical History / Comment(s): hydrocephalus Father History Unknown: Yes Additional Family Medical History / Comment(s): BONE CANCER Mother Additional Family Medical History / Comment(s): Lupus Medications and Allergies Home Medications Medication Instructions Recorded Confirmed Type Pnv,Calcium 72/Iron/Folic Acid 1 tab PO DAILY 06/05/21 08/31/21 History [ Plus Tablet] Acetaminophen [Tylenol] 325 mg PO Q4H 08/31/21 08/31/21 History Iron 18 mg PO DAILY 08/31/21 08/31/21 History diphenhydrAMINE [Benadryl] 50 mg PO DAILY 08/31/21 08/31/21 History Allergies Allergy/AdvReac Type Severity Reaction Status Date / Time progesterone Allergy Rash/Hives Verified 08/31/21 06:18 Exam Osteopathic Statement: *. No significant issues noted on an osteopathic structural exam other than those noted in the History and Physical/Consult. HEENT: within normal limits Heart: regular rate and rhythm Lungs: clear to auscultation bilaterally Abdomen: , non-tender Pelvic: closed/60%/-1 heart tones: 140's by doppler Extremities: neg. Wayne's Results Result Diagrams: 08/31/21 06:20 Assessment and Plan (1) 39 weeks gestation of Current Visit: No Status: Acute Code(s): Z3A.39 - 39 WEEKS GESTATION OF SNOMED Code(s): 01691188 (2) Family planning Current Visit: No Status: Acute Code(s): Z30.09 - ENCOUNTER FOR OTH GENERAL CNSL AND ADVICE ON CONTRACEPTION SNOMED Code(s): 914874368 Plan: Proceed with repeat section with bilateral partial salpingectomy. I have discussed the risks, benefits, and alternative therapies for the above- mentioned procedure and for both sedation/anesthesia as well as necessary blood products administration, if indicated, as they pertain to this patient. The patient has indicated her understanding and acceptance of the risks and procedures discussed.
[2021-08-31] MEDS ORDERED: LACTATED RINGERS 1,000 ML IV ONE (06:20)
[2021-08-31] MEDS ORDERED: LIDOCAINE 1% (10MG/ML) FOR IV START INTRADERMA PRN (06:20)
[2021-08-31] MEDS ORDERED: CITRIC ACID-SODIUM CITRATE 15 ML CUP PO ONE (06:20)
[2021-08-31] MEDS: LACTATED RINGERS 1,000 ML IV SCH ×2 (06:24→11:05)
[2021-08-31 06:41] LABS: Basophils % (A) 0 %; Eosinophils # (A) 0.1 k/uL (0-0.7); Eosinophils % (A) 1 %; HCT 30.9 % (34.0-46.0); HGB 10.3 gm/dL (11.4-16.0); Lymphocytes # (A) 1.5 k/uL (1.0-4.8); Lymphocytes % (A) 24 %; MCHC 33.3 g/dL (31.0-37.0); MCV 96.1 fL (80.0-100.0); Mean Platelet Volume 9.3; Monocytes # (A) 0.5 k/uL (0-1.0); Monocytes % (A) 8 %; Neutrophils # (A) 4.1 k/uL (1.3-7.7); Neutrophils % (A) 65 %; Platelet Count 256 k/uL (150-450); RBC 3.22 m/uL (3.80-5.40); RDW 12.8 % (11.5-15.5); WBC 6.3 k/uL (3.8-10.6)
[2021-08-31] MEDS ORDERED: KETOROLAC 15 MG/ML 1 ML VIAL ONE (08:01)
[2021-08-31] MEDS ORDERED: fentaNYL (PF) 50 MCG/ML 2 ML AMP ONE (08:01)
[2021-08-31] MEDS ORDERED: PROPOFOL 10 MG/ML 20 ML VIAL IV ONE (08:01)
[2021-08-31] MEDS ORDERED: PHENYLEPHRINE-0.9% NACL SYG 1,000 MCG/10 ML SYRINGE ONE (08:01)
[2021-08-31] MEDS ORDERED: NALBUPHINE 10 MG/ML (1 ML AMP) ONE (08:01)
[2021-08-31] MEDS ORDERED: MORPHINE SULFATE (PF) 0.3 MG/0.3 ML SYR ONE (08:01)
[2021-08-31] MEDS ORDERED: ONDANSETRON 4 MG/2 ML VIAL ONE (08:01)
[2021-08-31] MEDS ORDERED: OXYTOCIN 30 UNITS/500 ML NS BAG IV ONE (08:01)
--- NOTE | 2021-08-31 08:57 | P.OP ---
Date of Procedure: 08/31/21 Preoperative Diagnosis: 1. Intrauterine at 39-2/7 weeks. 2. History of previous section. 3. Family-planning. Postoperative Diagnosis: Same Procedure(s) Performed: Repeat low transverse section with bilateral partial salpingectomy Anesthesia: spinal (Duramorph) Surgeon: Marta Merritt Computer Help Desk Representative #1: Ravindra Mora Estimated Blood Loss (ml): 400 Pathology: other (Placenta, portions of right and left fallopian tubes) Condition: stable Disposition: floor Indications for Procedure: This is a 31-year-old female 4 para 3 at 39-2/7 weeks who presents for scheduled repeat section with bilateral partial salpingectomy for family planning. Please see history of physical for details of patient's admission. I have discussed the risks, benefits, and alternative therapies for the above- mentioned procedure and for both sedation/anesthesia as well as necessary blood products administration, if indicated, as they pertain to this patient. The patient has indicated her understanding and acceptance of the risks and procedures discussed. Operative Findings: A viable female infant is noted in the vertex presentation with scores of 9 at 1 minute and 9 at 5 minutes and weight of 6 lbs. 9 oz. Normal uterus tubes and ovaries are noted. Description of Procedure: The patient is taken to the operating room where she is placed in the dorsal supine position with leftward tilt after spinal Duramorph anesthesia is given. She is prepped and draped in the normal sterile fashion. Skin was tested and found to be adequately anesthetized. A Pfannenstiel skin incision was made with a scalpel removing the previous laparotomy scar. A second knife was used to carry the incision down to the underlying layer of fascia. The fascia was nicked in the midline with a scalpel and then extended laterally bilaterally with Charles scissors. The anterior lip of the fascia was grasped with 2 Pavel clamps and then dissected off the underlying rectus muscle in the midline with Charles scissors. The inferior aspect of the fascial incision was grasped with 2 Pavel clamps and dissected off the underlying rectus muscle and the midline with Charles scissors. Next the peritoneum layer was tented up with 2 hemostats and then entered sharply with the scalpel. The incision is extended superiorly and inferiorly with Metzenbaum scissors. Next a DeLee retractor is placed. The vesicouterine peritoneum is slightly adherent and therefore is left in place. The lower uterine segment is incised in transverse fashion with the scalpel slightly higher up above the vesicouterine peritoneum and then bluntly entered with a hemostat. Clear fluid is noted. The incision was then extended laterally bilaterally with 2 fingers. Next the infant's head is delivered through the incision. Nose and mouth are bulb suctioned. The remainder of the is easily delivered and placed on mother's abdomen. Cord is clamped and cut. Infant is taken to warmer by nursing staff. Uterine fundus is gently massaged and placenta is delivered manually. Uterus is exteriorized and cleared of all clots and debris. Uterine incision is closed with 0 Vicryl suture in a running locked fashion. A second layer of 0 Vicryl suture is used in a running fashion for hemostasis. Next the right fallopian tube is grasped in the midportion with a hemostat and then the mesosalpinx is entered with Bovie cautery. 0 Vicryl suture is tied 2 times around both the proximal and distal portion of the tube. The knuckle of tube is removed with Metzenbaum scissors and then the ends are OB cauterized. The same procedure is carried out on the left fallopian tube. Posterior cul-de-sac is suctioned of all clots and debris. Uterus is returned to the abdomen. Incision is noted to be hemostatic. Both tubal sites are noted to be hemostatic. Peritoneal layer is closed with 0 Vicryl suture in a running fashion. Muscle layer is reapproximated with 0 Vicryl suture in interrupted fashion. Fascia layer is then closed with 0 PDS suture with 2 sutures meeting in the midline and the knots buried in either side and in the midline. The subcutaneous tissue was then closed with 2-0 Vicryl sut ure. Skin layer was then closed with kit. All sponge and needle counts are correct. The patient is taken to recovery room in stable condition.
[2021-08-31] MEDS ORDERED: OXYTOCIN 30 UNITS/500 ML NS 30 UNIT in SALINE 1 500ML.BAG IV SCH (09:14)
[2021-08-31] MEDS ORDERED: MORPHINE SULFATE 2 MG/ML SYRINGE IVP PRN (09:14)
[2021-08-31] MEDS ORDERED: NALOXONE 0.4 MG/ML 1 ML VIAL IV PRN (09:14)
[2021-08-31] MEDS ORDERED: MORPHINE SULFATE 4MG/4ML SYRG IVP PRN (09:14)
[2021-08-31] MEDS ORDERED: ZOLPIDEM 5 MG TAB PO PRN (09:14)
[2021-08-31] MEDS ORDERED: ONDANSETRON 4 MG/2 ML VIAL IVP PRN (09:14)
[2021-08-31] MEDS ORDERED: SIMETHICONE 80 MG CHEWABLE PO PRN (09:14)
[2021-08-31] MEDS ORDERED: diphenhydrAMINE 50 MG/ML 1 ML VIAL IVP PRN ×2 (09:14)
[2021-08-31] MEDS ORDERED: diphenhydrAMINE 25 MG CAP PO PRN (09:14)
[2021-08-31] MEDS ORDERED: METOCLOPRAMIDE 5 MG/ML 2 ML VIAL IVP PRN (09:14)
[2021-08-31] MEDS: MORPHINE SULFATE 4 MG/ML SYRINGE IVP PRN ×3 (09:36→23:37)
[2021-08-31] MEDS: ACETAMINOPHEN TAB 500 MG TAB PO SCH ×2 (11:18→19:30)
[2021-08-31] MEDS: KETOROLAC 15 MG/ML 1 ML VIAL IVP SCH ×2 (14:30→23:37)
[2021-08-31] MEDS: diphenhydrAMINE 50 MG CAP PO PRN (20:17)
[2021-08-31] MEDS: SENNOSIDES-DOCUSATE SODIUM 1 EACH TAB PO SCH (20:21)
[2021-09-01] MEDS: LACTATED RINGERS 1,000 ML IV SCH ×4 (02:54→12:54)
[2021-09-01] MEDS: IBUPROFEN 600 MG TAB PO SCH ×5 (02:54→22:35)
[2021-09-01] MEDS: ACETAMINOPHEN TAB 500 MG TAB PO SCH ×4 (02:55→13:17)
[2021-09-01] MEDS: SENNOSIDES-DOCUSATE SODIUM 1 EACH TAB PO SCH ×2 (07:40→20:15)
[2021-09-01] MEDS: diphenhydrAMINE 50 MG CAP PO PRN ×2 (07:45→20:14)
[2021-09-01 08:14] LABS: Basophils % (A) 0 %; Eosinophils % (A) 0 %; HCT 26.3 % (34.0-46.0); Hypochromasia Slight; Lymphocytes # (A) 0.6 k/uL (1.0-4.8); Lymphocytes % (A) 6 %; MCH 32.6 pg (25.0-35.0); MCHC 33.5 g/dL (31.0-37.0); MCV 97.4 fL (80.0-100.0); Monocytes # (A) 0.5 k/uL (0-1.0); Monocytes % (A) 5 %; Neutrophils # (A) 7.5 k/uL (1.3-7.7); Neutrophils % (A) 86 %; Platelet Count 212 k/uL (150-450); RDW 12.8 % (11.5-15.5); WBC 8.6 k/uL (3.8-10.6)
[2021-09-01 08:15] LABS: HGB 8.8 gm/dL (11.4-16.0)
--- NOTE | 2021-09-01 08:21 | P.PN ---
Progress Note - Text Progress Note Date: 09/01/21 (742) Anesthesia Postop day 1 Subjective: Status Post section with Duramorph. Patient seen and examined. Doing well without complaint. VAS 5 out of 10 this morning. Instructed she has pain breakthrough pain meds available. No nausea or vomiting. Mild pruritus tolerable.. Afebrile. Gross lower extremity strength intact. . Without apparent anesthetic complications. Objective: Vital signs reviewed Heart: Regular Rate Lungs: Good chest excursion Abdomen: Appears nondistended Assessment: Status post with Duramorph postop day 1 Plan: Continue current care with your medical management. Anticipated change in pain needs this morning. Patient tolerated procedure well
--- NOTE | 2021-09-01 09:01 | P.PNOBGPC ---
Subjective - Subjective Principal diagnosis: Status post repeat section with TL POD #1 Interval history: Patient is complaining of pain especially on her incision and below her incision. She has taken Motrin this morning and it is not helping. Lochia is minimal. She is passing flatus and bowel movement. She is bottle feeding. Patient reports: Reports appetite normal, Reports voiding normally, Reports pain poorly controlled, Reports ambulating normally : doing well, bottle feeding Objective - Vital Signs Latest vital signs: Vital Signs Temp Pulse Resp BP Pulse Ox 09/01/21 08:00 98.3 F 99 18 112/70 97 09/01/21 04:00 98.6 F 89 17 107/71 98 09/01/21 00:00 98.5 F 99 18 110/66 95 08/31/21 21:01 98.3 F 108 H 18 107/68 100 08/31/21 16:00 98 F 90 16 119/61 99 08/31/21 11:00 96.3 F L 75 17 103/65 99 08/31/21 10:23 76 17 109/60 99 08/31/21 09:49 96.3 F L 75 16 97/64 98 08/31/21 09:38 75 16 99/69 98 08/31/21 09:23 85 17 94/69 99 08/31/21 09:08 87 17 95/66 99 Intake and Output 08/31/21 09/01/21 09/01/21 22:59 06:59 14:59 Output Total 675 Balance -675 Output: Urine 675 Uretheral (Rudolph) 200 - Exam Extremities: Present: normal. Absent: tenderness Abdomen: Present: soft (Positive bowel sounds 4), tenderness (lower edge of the incision). Absent: distention Incision: Present: intact (Ecchymosis and tenderness is noted along the mons and swelling is noted over the mons area.). Absent: erythematous, dry (There is a small area of serosanguineous discharge on the left side of the incision) Uterus: Present: normal, firm. Absent: tenderness - Labs Labs: Abnormal Lab Results - Last 24 Hours (Table) 09/01/21 Range/Units 07:35 RBC 2.70 L (3.80-5.40) m/uL Hgb 8.8 L D (11.4-16.0) gm/dL Hct 26.3 L (34.0-46.0) % Lymphocytes # 0.6 L (1.0-4.8) k/uL Assessment and Plan Assessment: Status post repeat low transverse section with bilateral partial salpingectomy postoperative day #1 (1) 39 weeks gestation of Current Visit: No Status: Acute Code(s): Z3A.39 - 39 WEEKS GESTATION OF SNOMED Code(s): 04300421 (2) Family planning Current Visit: No Status: Acute Code(s): Z30.09 - ENCOUNTER FOR OT GENERAL CNSL AND ADVICE ON CONTRACEPTION SNOMED Code(s): 620732491 Plan: Will alternate pain medications. Will use ice pack on the hematoma on her mons area. May shower if desired.
[2021-09-01] MEDS: KETOROLAC 15 MG/ML 1 ML VIAL IVP SCH ×3 (10:53→19:19)
[2021-09-01 19:53] LABS: Basophils % (A) 0 %; Eosinophils # (A) 0.1 k/uL (0-0.7); Eosinophils % (A) 1 %; HCT 27.1 % (34.0-46.0); HGB 8.6 gm/dL (11.4-16.0); Hypochromasia Slight; Lymphocytes # (A) 0.9 k/uL (1.0-4.8); Lymphocytes % (A) 12 %; MCH 31.2 pg (25.0-35.0); MCHC 31.9 g/dL (31.0-37.0); MCV 97.8 fL (80.0-100.0); Monocytes # (A) 0.5 k/uL (0-1.0); Monocytes % (A) 6 %; Neutrophils # (A) 5.9 k/uL (1.3-7.7); Neutrophils % (A) 77 %; Platelet Count 200 k/uL (150-450); RBC 2.77 m/uL (3.80-5.40); WBC 7.6 k/uL (3.8-10.6)
[2021-09-02] MEDS: ACETAMINOPHEN TAB 500 MG TAB PO SCH (03:11)
[2021-09-02] MEDS: IBUPROFEN 600 MG TAB PO SCH ×2 (03:13→04:46)
[2021-09-02 07:53] VITALS: BP 124/73; PULSE 95; RESP 16; TEMP 98.2
[2021-09-02] MEDS: SENNOSIDES-DOCUSATE SODIUM 1 EACH TAB PO SCH (08:08)
--- NOTE | 2021-09-02 08:59 | P.DS ---
Providers Date of admission: 08/31/21 05:59 Expected date of discharge: 09/02/21 Attending physician: Marta Merritt Primary care physician: Stated None - Discharge Diagnosis(es) (1) Status post repeat low transverse section Current Visit: Yes Status: Acute Hospital Course: Patient presented for repeat low transverse . Should with this pr ocedure without complication. Postoperatively she developed a hematoma over her mons area but it is not spreading or getting bigger, hemoglobin is stable. Her incision is clean, dry, intact with kit. Patient denies nausea, vomiting, chest pain, shortness of breath or any calf pain. Patient will be discharged home postoperative day #2 in stable condition to follow-up with Dr. Merritt on Saturday for staple removal. Plan - Discharge Summary New Discharge Prescriptions: No Action Acetaminophen [Tylenol] 325 mg PO Q4H Pnv,Calcium 72/Iron/Folic Acid [ Plus Tablet] 1 tab PO DAILY diphenhydrAMINE [Benadryl] 50 mg PO DAILY Iron 18 mg PO DAILY Discharge Medication List Pnv,Calcium 72/Iron/Folic Acid [ Plus Tablet] 1 tab PO DAILY 06/05/21 [History] Acetaminophen [Tylenol] 325 mg PO Q4H 08/31/21 [History] Iron 18 mg PO DAILY 08/31/21 [History] diphenhydrAMINE [Benadryl] 50 mg PO DAILY 08/31/21 [History] Follow up Appointment(s)/Referral(s): Marta Merritt DO [Doctor of Osteopathic Medicine] - 10/10/21 3:30 pm (Post Op 09-14-2021 at 09:00a.m.) Discharge Disposition: HOME SELF-CARE
== END 2021-09-02 11:25 | disposition home or self-care (01) | DRG 784 ==
LOC: 4FBP 05:59
PROVIDERS: ADMIT Obstetrics & Gynecology; ATTEND Obstetrics & Gynecology
PROC: 0UB70ZZ Excision of Bilateral Fallopian Tubes, Open Approach (ICD-10-PCS; 2021-08-31)
PROC: 10D00Z1 Extraction of Products of Conception, Low, Open Approach (ICD-10-PCS; principal; 2021-08-31 08:00)
DX: O34.211 Maternal care for low transverse scar from previous cesarean delivery (principal); O98.82 Other maternal infectious and parasitic diseases complicating childbirth; O99.354 Diseases of the nervous system complicating childbirth; F32.A Depression, unspecified; F41.9 Anxiety disorder, unspecified; O90.2 Hematoma of obstetric wound; J45.20 Mild intermittent asthma, uncomplicated; L29.9 Pruritus, unspecified; O99.73 Diseases of the skin and subcutaneous tissue complicating the puerperium; M41.9 Scoliosis, unspecified; O99.344 Other mental disorders complicating childbirth; O99.52 Diseases of the respiratory system complicating childbirth; Z30.2 Encounter for sterilization; Z37.0 Single live birth; Z3A.39 39 weeks gestation of pregnancy; Z87.440 Personal history of urinary (tract) infections; Z87.442 Personal history of urinary calculi; Z87.891 Personal history of nicotine dependence; Z82.5 Family history of asthma and other chronic lower respiratory diseases; Z86.19 Personal history of other infectious and parasitic diseases
CPT/HCPCS: 85025; 86850; 86900; 86901; 88302; 88307

== ENCOUNTER → 2021-10-23 | Outpatient (CLI) | payer OTHER ==
--- NOTE | 2021-10-23 15:34 | US ---
EXAMINATION TYPE: US transvaginal DATE OF EXAM: 10/23/2021 COMPARISON: US 01/20/10, CT 01/18/20 CLINICAL HISTORY: R10.2 Pelvic pain. Status post 08/31/21. No period since. Patient complain s of mill tender abdomen/pelvis. TECHNIQUE: Transvaginal (TV). Transabdominal sonographic images of the pelvis were acquired. Trans vaginal sonographic images were medically necessary to better assess the following anatomy: Bladder e mpty Date of LMP: Before childbirth 08/31/21 EXAM MEASUREMENTS: Uterus: 10.3 x 6.1 x 4.6 cm Endometrial Stripe: 1.0 cm Right Ovary: 3.7 x 2.4 x 1.9 cm Left Ovary: 4.1 x 2.3 x 2.0 cm 1. Uterus: Retroverted Bulky, heterogeneous. 2. Endometrium: endometrial canal actively changing. Patient spotting 3. Right Ovary: Cyst = 2.3 x 1.4 x 1.6 cm 4. Left Ovary: wnl 5. Bilateral Adnexa: wnl 6. Posterior cul-de-sac: wnl Heterogeneous uterus. Tiny amount of fluid in the endometrial canal. Endometrial stripe poorly define d with technologist measuring up to 10 mm but appears thinner on images saved. No free fluid in the p junito. Symmetric normal-size ovaries with incidental 2.3 cm prominent follicle in the periphery of the right ovary or simple thin-walled ovarian cyst. IMPRESSION: As above.
== END | disposition home or self-care (01) ==
LOC: RADUSWWP 14:15
PROVIDERS: ATTEND Obstetrics & Gynecology
DX: N85.4 Malposition of uterus (principal); N83.291 Other ovarian cyst, right side
CPT/HCPCS: 76830

== ENCOUNTER 2023-11-05 21:38 | Emergency (ER) | payer OTHER ==
--- NOTE | 2023-11-05 22:41 | ED ---
Abdominal Pain HPI - General Chief Complaint: Abdominal Pain Stated Complaint: Abd Pain Time Seen by Provider: 11/05/23 22:15 Source: patient Mode of arrival: ambulatory Limitations: no limitations - History of Present Illness Initial Comments: This patient is a 33-year-old woman with history of previous appendectomy and tubal ligation who presents with complaint of right lower quadrant pain going on 2 to 3 days now. She states initially it was mild to moderate intensity, but over the past day it has become severe and there is a right flank component. MD Complaint: abdominal pain Onset/Timin -: days(s) Location: RLQ Radiation: none Migration to: R flank Severity: severe Quality: aching Consistency: constant Improves With: nothing Worsens With: nothing - Related Data Home Medications Medication Instructions Recorded Confirmed Vit No.180/Iron/Folic 1 tab PO DAILY 06/05/21 08/31/21 [ Plus Tablet] Acetaminophen [Tylenol] 325 mg PO Q4H 08/31/21 08/31/21 Iron 18 mg PO DAILY 08/31/21 08/31/21 diphenhydrAMINE [Benadryl] 50 mg PO DAILY 08/31/21 08/31/21 Previous Rx's Medication Instructions Recorded Ibuprofen [Motrin] 600 mg PO Q6H #40 tab 09/02/21 oxyCODONE HCL [OxyIR] 10 mg PO Q4HR PRN #18 tab 09/02/21 methocarbamoL [Robaxin-750] 1,500 mg PO TID PRN #30 tab 02/12/23 predniSONE 50 mg PO DAILY 5 Days #5 tab 02/12/23 Dicyclomine [Bentyl] 20 mg PO QID #15 tablet 11/06/23 Allergies Allergy/AdvReac Type Severity Reaction Status Date / Time progesterone Allergy Rash/Hives Verified 11/05/23 22:14 Review of Systems ROS Statement: Those systems with pertinent positive or pertinent negative responses have been documented in the HPI. ROS Other: All systems not noted in ROS Statement are negative. Constitutional: Denies: fever, chills, weakness Respiratory: Denies: cough, dyspnea Cardiovascular: Denies: chest pain, palpitations, edema Gastrointestinal: Reports: abdominal pain, nausea. Denies: vomiting, diarrhea, constipation Genitourinary: Denies: dysuria, hematuria, discharge, abnormal menses Musculoskeletal: Denies: back pain Skin: Denies: rash Neurological: Denies: headache, weakness Past Medical History Past Medical History: Asthma Additional Past Medical History / Comment(s): Bronchial asthma mild intermittent in nature, ovarian cyst, scoliosis , kidney stones, history of UTI with Klebsiella and E. coli History of Any Multi-Drug Resistant Organisms: None Reported Past Surgical History: Appendectomy, Section, Orthopedic Surgery Additional Past Surgical History / Comment(s): Laparoscopy-drainage of ovarian cysts-2010, ORTHO SURGERY TO RIGHT HIP, RIGHT KNEE, RIGHT FOOT, right foot 2nd toe Past Anesthesia/Blood Transfusion Reactions: Postoperative Nausea & Vomiting (PONV) Past Psychological History: Anxiety, Depression Smoking Status: Former smoker, Vaper Past Alcohol Use History: None Reported Past Drug Use History: None Reported - Past Family History Daughter(s) Family Medical History: Asthma Additional Family Medical History / Comment(s): tracheomalacia Brother(s) Additional Family Medical History / Comment(s): hydrocephalus Mother Additional Family Medical History / Comment(s): Lupus Father History Unknown: Yes Family Medical History: Hyperlipidemia, Hypertension Additional Family Medical History / Comment(s): BONE CANCER General Exam Limitations: no limitations General appearance: alert, in no apparent distress Head exam: Present: atraumatic, normocephalic Eye exam: Present: normal appearance. Absent: scleral icterus, conjunctival injection Neck exam: Present: normal inspection Respiratory exam: Present: normal lung sounds bilaterally. Absent: respiratory distress, wheezes, rales, rhonchi, stridor Cardiovascular Exam: Present: regular rate, normal rhythm, normal heart sounds. Absent: systolic murmur, diastolic murmur, rubs, gallop GI/Abdominal exam: Present: soft, tenderness. Absent: distended, guarding, rebound, rigid, mass, pulsatile mass, hernia Extremities exam: Present: normal inspection, normal capillary refill. Absent: pedal edema, calf tenderness Back exam: Present: normal inspection. Absent: CVA tenderness (R), CVA tendern ess (L) Neurological exam: Present: alert Skin exam: Present: warm, dry, intact, normal color. Absent: rash Course Vital Signs 11/05/23 11/06/23 11/06/23 22:11 02:00 03:48 Temperature 98.2 F 98.3 F Pulse Rate 79 82 76 Respiratory 18 16 16 Rate Blood Pressure 99/63 90/54 101/59 O2 Sat by Pulse 99 99 100 Oximetry Medical Decision Making - Medical Decision Making The patient had CT scan of the abdomen pelvis that I interpreted as negative for free air or obstruction. No evident acute surgical condition. Was pt. sent in by a medical professional or institution (, STEVE, ANTISQUEAK WORKER, urgent care, hospital, or residential...) When possible be specific @ -[No] Did you speak to anyone other than the patient for history (EMS, parent, family, police, friend...)? What history was obtained from this source @ -[No] Did you review nursing and triage notes (agree or disagree)? Why? @ -[I reviewed and agree with nursing and triage notes] Were old charts reviewed (outside hosp., previous admission, EMS record, old EKG, old radiological studies, urgent care reports/EKG's, residential records)? Report findings @ -[No old charts were reviewed] Differential Diagnosis (chest pain, altered mental status, abdominal pain women, abdominal pain men, vaginal bleeding, weakness, fever, dyspnea, syncope, headache, dizziness, GI bleed, back pain, seizure, CVA, palpatations, mental health, musculoskeletal)? @ -[Differential Abdominal Pain Men: Appendicitis, cholecystitis, diverticulosis, ischemic bowel, pancreatitis, hepatitis, UTI, gastroenteritis, AAA, incarcerated hernia, bowel obstruction, constipation, inflammatory bowel, hepatitis, peptic ulcer disease, splenic infarction, perforated viscus, testicular torsion, this is not meant to be an all-inclusive list EKG interpreted by me (3pts min.). @ -[As above] X-rays interpreted by me (1pt min.). @ -[None done] CT interpreted by me (1pt min.). @ -I interpreted as above U/S interpreted by me (1pt. min.). @ -[None done] What testing was considered but not performed or refused? (CT, X-rays, U/S, labs)? Why? @ -[None] What meds were considered but not given or refused? Why? @ -[None] Did you discuss the management of the patient with other professionals (pro fessionals i.e. , STEVE, ANTISQUEAK WORKER, lab, RT, psych nurse, socially responsible investment adviser, boiler room operator, teacher, army officer, rn case management)? Give summary @ -[No] Was smoking cessation discussed for >3mins.? @ -[No] Was critical care preformed (if so, how long)? @ -[No] Were there social determinants of health that impacted care today? How? (Homelessness, low income, unemployed, alcoholism, drug addiction, transportation, low edu. Level, literacy, decrease access to med. care, penitentiary, rehab)? @ -[No] Was there de-escalation of care discussed even if they declined (Discuss DNR or withdrawal of care, Hospice)? DNR status @ -[No] What co-morbidities impacted this encounter? (DM, HTN, Smoking, COPD, CAD, Cancer, CVA, ARF, Chemo, Hep., AIDS, mental health diagnosis, sleep apnea, morbid obesity)? @ -[None] Was patient admitted / discharged? Hospital course, mention meds given and route, prescriptions, significant lab abnormalities, going to OR and other pertinent info. @ -[Patient is a 33-year-old woman presenting with right lower quadrant abdominal pain. The patient's exam does have some right lower quadrant t enderness therefore CT scan is obtained. The CT does not reveal acute surgical cause of patient's pain. She is feeling better. We discussed appropriate further care and follow-up as well as return parameters. Undiagnosed new problem with uncertain prognosis? @ -[No] Drug Therapy requiring intensive monitoring for toxicity (Heparin, Nitro, Insulin, Cardizem)? @ -[No] Were any procedures done? @ -[No] Diagnosis/symptom? @ -[Acute abdominal pain Acute, or Chronic, or Acute on Chronic? @ -[Acute Uncomplicated (without systemic symptoms) or Complicated (systemic symptoms)? @ -[Uncomplicated Side effects of treatment? @ -[No] Exacerbation, Progression, or Severe Exacerbation? @ -[No] Poses a threat to life or bodily function? How? (Chest pain, [place], [place], pneumonia, PE, COPD, DKA, ARF, appy, cholecystitis, CVA, Diverticulitis, Homicidal, Suicidal, threat to staff... and all critical care pts) @ -[No] - Lab Data Result diagrams: 11/05/23 23:39 11/05/23 23:39 Lab Results 11/05/23 11/05/23 11/06/23 Range/Units 23:39 23:39 00:06 WBC 7.1 (3.8-10.6) k/uL RBC 3.49 L (3.80-5.40) m/uL Hgb 10.5 L (11.4-16.0) gm/dL Hct 32.0 L (34.0-46.0) % MCV 91.6 (80.0-100.0) fL MCH 30.1 (25.0-35.0) pg MCHC 32.9 (31.0-37.0) g/dL RDW 14.4 (11.5-15.5) % Plt Count 195 (150-450) k/uL MPV 9.0 Neutrophils % 64 % Lymphocytes % 26 % Monocytes % 5 % Eosinophils % 3 % Basophils % 0 % Neutrophils # 4.5 (1.3-7.7) k/uL Lymphocytes # 1.8 (1.0-4.8) k/uL Monocytes # 0.4 (0-1.0) k/uL Eosinophils # 0.2 (0-0.7) k/uL Basophils # 0.0 (0-0.2) k/uL Sodium 138 (137-145) mmol/L Potassium 4.2 (3.5-5.1) mmol/L Chloride 112 H (98-107) mmol/L Carbon Dioxide 21 L (22-30) mmol/L Anion Gap 5 mmol/L BUN 13 (7-17) mg/dL Creatinine 0.50 L (0.52-1.04) mg/dL Est GFR (CKD-EPI)AfAm >90 (>60 ml/min/1.73 sqM) Est GFR (CKD-EPI)NonAf >90 (>60 ml/min/1.73 sqM) Glucose 96 (74-99) mg/dL Calcium 8.4 (8.4-10.2) mg/dL Total Bilirubin 0.4 (0.2-1.3) mg/dL AST 27 (14-36) U/L ALT 12 (4-34) U/L Alkaline Phosphatase 44 (38-126) U/L C-Reactive Protein <0.5 (<1.0) mg/dL Total Protein 6.0 L (6.3-8.2) g/dL Albumin 3.8 (3.5-5.0) g/dL Amylase 54 (30-110) U/L Lipase 81 (23-300) U/L Urine Color Light Yellow Urine Appearance Clear (Clear) Urine pH 7.5 (5.0-8.0) Ur Specific Bromide 1.022 (1.001-1.035) Urine Protein Negative (Negative) Urine Glucose (UA) Negative (Negative) Urine Ketones Negative (Negative) Urine Blood Negative (Negative) Urine Nitrite Negative (Negative) Urine Bilirubin Negative (Negative) Urine Urobilinogen 2.0 (<2.0) mg/dL Ur Leukocyte Esterase Trace H (Negative) Urine RBC 2 (0-5) /hpf Urine WBC 6 H (0-5) /hpf Ur Squamous Epith Cells 5 H (0-4) /hpf Urine Mucus Rare H (None) /hpf Urine Yeast (Budding) Occasional H (None) /hpf Urine HCG, Qual (Not Detectd) 11/06/23 Range/Units 00:06 WBC (3.8-10.6) k/uL RBC (3.80-5.40) m/uL Hgb (11.4-16.0) gm/dL Hct (34.0-46.0) % MCV (80.0-100.0) fL MCH (25.0-35.0) pg MCHC (31.0-37.0) g/dL RDW (11.5-15.5) % Plt Count (150-450) k/uL MPV Neutrophils % % Lymphocytes % % Monocytes % % Eosinophils % % Basophils % % Neutrophils # (1.3-7.7) k/uL Lymphocytes # (1.0-4.8) k/uL Monocytes # (0-1.0) k/uL Eosinophils # (0-0.7) k/uL Basophils # (0-0.2) k/uL Sodium (137-145) mmol/L Potassium (3.5-5.1) mmol/L Chloride (98-107) mmol/L Carbon Dioxide (22-30) mmol/L Anion Gap mmol/L BUN (7-17) mg/dL Creatinine (0.52-1.04) mg/dL Est GFR (CKD-EPI)AfAm (>60 ml/min/1.73 sqM) Est GFR (CKD-EPI)NonAf (>60 ml/min/1.73 sqM) Glucose (74-99) mg/dL Calcium (8.4-10.2) mg/dL Total Bilirubin (0.2-1.3) mg/dL AST (14-36) U/L ALT (4-34) U/L Alkaline Phosphatase (38-126) U/L C-Reactive Protein (<1.0) mg/dL Total Protein (6.3-8.2) g/dL Albumin (3.5-5.0) g/dL Amylase (30-110) U/L Lipase (23-300) U/L Urine Color Urine Appearance (Clear) Urine pH (5.0-8.0) Ur Specific Bromide (1.001-1.035) Urine Protein (Negative) Urine Glucose (UA) (Negative) Urine Ketones (Negative) Urine Blood (Negative) Urine Nitrite (Negative) Urine Bilirubin (Negative) Urine Urobilinogen (<2.0) mg/dL Ur Leukocyte Esterase (Negative) Urine RBC (0-5) /hpf Urine WBC (0-5) /hpf Ur Squamous Epith Cells (0-4) /hpf Urine Mucus (None) /hpf Urine Yeast (Budding) (None) /hpf Urine HCG, Qual Not Detected (Not Detectd) Disposition Clinical Impression: Abdominal pain Disposition: HOME SELF-CARE Condition: Good Instructions (If sedation given, give patient instructions): Abdominal Pain (ED) Prescriptions: Dicyclomine [Bentyl] 20 mg PO QID #15 tablet Is patient prescribed a controlled substance at d/c from ED?: No Referrals: None,Stated [Primary Care Provider] - 1-2 days
[2023-11-05] MEDS: ONDANSETRON 4 MG/2 ML VIAL IVP STA (23:44)
[2023-11-05] MEDS: MORPHINE SULFATE 4 MG/ML SYRINGE IV STA (23:47)
[2023-11-05 23:48] LABS: Basophils % (A) 0 %; Eosinophils # (A) 0.2 k/uL (0-0.7); Eosinophils % (A) 3 %; HGB 10.5 gm/dL (11.4-16.0); Lymphocytes # (A) 1.8 k/uL (1.0-4.8); Lymphocytes % (A) 26 %; MCH 30.1 pg (25.0-35.0); MCHC 32.9 g/dL (31.0-37.0); MCV 91.6 fL (80.0-100.0); Monocytes # (A) 0.4 k/uL (0-1.0); Monocytes % (A) 5 %; Neutrophils # (A) 4.5 k/uL (1.3-7.7); Neutrophils % (A) 64 %; Platelet Count 195 k/uL (150-450); RBC 3.49 m/uL (3.80-5.40); RDW 14.4 % (11.5-15.5); WBC 7.1 k/uL (3.8-10.6)
[2023-11-06 00:02] LABS: ALT 12 U/L (4-34); African American GFR (CKD) >90 (>60 ml/min/1.73 sqM); Albumin 3.8 g/dL (3.5-5.0); Amylase 54 U/L (30-110); Anion Gap 5 mmol/L; Blood Urea Nitrogen 13 mg/dL (7-17); C Reactive Protein <0.5 mg/dL (<1.0); Calcium 8.4 mg/dL (8.4-10.2); Carbon Dioxide 21 mmol/L (22-30); Chloride 112 mmol/L (98-107); Glucose 96 mg/dL (74-99); Lipase 81 U/L (23-300); Non-African American GFR(CKD) >90 (>60 ml/min/1.73 sqM); Sodium 138 mmol/L (137-145); Total Bilirubin 0.4 mg/dL (0.2-1.3)
[2023-11-06 00:07] LABS: AST 27 U/L (14-36); Alkaline Phosphatase 44 U/L (38-126); Potassium 4.2 mmol/L (3.5-5.1)
[2023-11-06] MEDS: MORPHINE SULFATE 4 MG/ML SYRINGE IV STA ×2 (00:11→00:55)
[2023-11-06 00:31] LABS: Appearance,Urine Clear (Clear); Bilirubin,Urine Negative (Negative); Blood,Urine Negative (Negative); Budding Yeast,Urine Occasional /hpf; Color,Urine Light Yellow; Glucose,Urine (UA) Negative (Negative); Ketones,Urine Negative (Negative); Leukocyte Esterase,Urine Trace (Negative); Mucus,Urine Rare /hpf; Nitrite,Urine Negative (Negative); PH, Urine 7.5 (5.0-8.0); Protein,Urine Negative (Negative); RBC,Urine 2 /hpf (0-5); Specific Gravity,Urine 1.022 (1.001-1.035); Squamous Epithelial Cell,Urine 5 /hpf (0-4); WBC,Urine 6 /hpf (0-5)
--- NOTE | 2023-11-06 01:41 | CT ---
EXAM: CT Abdomen and Pelvis Without Intravenous Contrast CLINICAL HISTORY: ITS.REASON CT Reason: R flank pain, suspect stone TECHNIQUE: Axial computed tomography images of the abdomen and pelvis without intravenous contrast. CTDI is 10.7 mGy and DLP is 655.7 mGy-cm. This CT exam was performed using one or more of the following dose reduction techniques: automated exposure control, adjustment of the mA and/or kV according to patient size, and/or use of iterative reconstruction technique. COMPARISON: 01/18/20 FINDINGS: Lung bases: Unremarkable. No mass. No consolidation. ABDOMEN: Liver: Unremarkable. Gallbladder and bile ducts: Unremarkable. No calcified stones. No ductal dilation. Pancreas: Unremarkable. No ductal dilation. Spleen: Unremarkable. No splenomegaly. Adrenals: Unremarkable. No mass. Kidneys and ureters: Nonobstructing right kidney lower pole stone measuring 3 mm. There are 2 nonobstructing left kidney stones, each measuring 3 mm. No hydronephrosis. Subcentimeter cortical hypodensity left kidney lower pole, statistically a simple cyst but too small to definitely characterize. Stomach and bowel: Unremarkable. No mucosal thickening. No bowel obstruction. PELVIS: Appendix: Appendectomy. Bladder: Unremarkable. No stones. Reproductive: Possible posterior uterine fibroid. This could be further characterized on ultrasound as clinically indicated. ABDOMEN and PELVIS: Intraperitoneal space: Unremarkable. No free air, significant free fluid, or fluid collection. Bones/joints: No acute fracture. No dislocation. Soft tissues: Unremarkable. Vasculature: Unremarkable. No abdominal aortic aneurysm. Lymph nodes: Unremarkable. No enlarged lymph nodes. IMPRESSION: 1. Nonobstructing right kidney lower pole stone measuring 3 mm. No hydronephrosis. 2. There are 2 nonobstructing left kidney stones, each measuring 3 mm. No hydronephrosis. 3. Possible posterior uterine fibroid. This could be further characterized on ultrasound as clinically indicated.
[2023-11-06 03:20] VITALS: RESP 16
[2023-11-06] MEDS: HYDROmorphone 0.5 MG/0.5 ML SYRINGE IVP STA (03:29)
[2023-11-06] MEDS: PEG 3350 (236 GM/BTL) + LYTES 4,000 ML BOTTLE PO ONE (03:48)
[2023-11-06 04:06] VITALS: BP 101/59; PULSE 76; TEMP 98.3
== END 2023-11-06 03:51 | disposition home or self-care (01) ==
LOC: EC 21:38
DX: R10.31 Right lower quadrant pain (principal); F17.290 Nicotine dependence, other tobacco product, uncomplicated; Z88.8 Allergy status to other drugs, medicaments and biological substances
CPT/HCPCS: 36415; 80053; 82150; 83690; 85025; 86140; 81001; 81025; 74176; 99284; 96374; 96375 ×2; 96376 ×2; J2270 ×2; J2405; J1170

== ENCOUNTER 2024-10-06 22:13 | Emergency (ER) | payer SELFPAY ==
--- NOTE | 2024-10-06 23:01 | ED ---
ENT HPI - General Chief complaint: Dental/Oral Stated complaint: R Side Tooth Pain Time Seen by Provider: 10/06/24 22:28 Source: patient Mode of arrival: ambulatory Limitations: no limitations - History of Present Illness Initial comments: 34-year-old female presenting to emergency department complaints of right-sided dental pain. Patient states that she has been out of her insurance and has been unable to make an appointment with a dentist for this. She has been having worsening right lower dental pain over the past few days. Denies drainage from the tooth, fevers, chills, difficulty in breathing. Patient states that she has been having mildly difficult chewing due to the pain. denies recent antibiotic use. - Related Data Home Medications Medication Instructions Recorded Confirmed Vit No.180/Iron/Folic 1 tab PO DAILY 06/05/21 08/31/21 [ Plus Tablet] Acetaminophen [Tylenol] 325 mg PO Q4H 08/31/21 08/31/21 Iron 18 mg PO DAILY 08/31/21 08/31/21 diphenhydrAMINE [Benadryl] 50 mg PO DAILY 08/31/21 08/31/21 Previous Rx's Medication Instructions Recorded Ibuprofen [Motrin] 600 mg PO Q6H #40 tab 09/02/21 oxyCODONE HCL [OxyIR] 10 mg PO Q4HR PRN #18 tab 09/02/21 methocarbamoL [Robaxin-750] 1,500 mg PO TID PRN #30 tab 02/12/23 predniSONE 50 mg PO DAILY 5 Days #5 tab 02/12/23 Dicyclomine [Bentyl] 20 mg PO QID #15 tablet 11/06/23 Amoxic-Pot Clav 875-125Mg 1 tab PO Q12HR #20 tab 10/06/24 [Augmentin 875-125] Ibuprofen [Motrin] 800 mg PO Q8HR PRN #30 tab 10/06/24 Allergies Allergy/AdvReac Type Severity Reaction Status Date / Time progesterone Allergy Rash/Hives Verified 10/06/24 22:25 Review of Systems ROS Statement: Those systems with pertinent positive or pertinent negative responses have been documented in the HPI. ROS Other: All systems not noted in ROS Statement are negative. Past Medical History Past Medical History: Asthma Additional Past Medical History / Comment(s): Bronchial asthma mild intermittent in nature, ovarian cyst, scoliosis , kidney stones, history of UTI with Klebsiella and E. coli History of Any Multi-Drug Resistant Organisms: None Reported Past Surgical History: Appendectomy, Section, Orthopedic Surgery Additional Past Surgical History / Comment(s): Laparoscopy-drainage of ovarian cysts-2010, ORTHO SURGERY TO RIGHT HIP, RIGHT KNEE, RIGHT FOOT, right foot 2nd toe Past Anesthesia/Blood Transfusion Reactions: Postoperative Nausea & Vomiting (PONV) Past Psychological History: Anxiety, Depression Smoking Status: Former smoker, Vaper Past Alcohol Use History: None Reported Past Drug Use History: None Reported - Past Family History Daughter(s) Family Medical History: Asthma Additional Family Medical History / Comment(s): tracheomalacia Brother(s) Additional Family Medical History / Comment(s): hydrocephalus Mother Additional Family Medical History / Comment(s): Lupus Father History Unknown: Yes Family Medical History: Hyperlipidemia, Hypertension Additional Family Medical History / Comment(s): BONE CANCER General Exam Limitations: no limitations General appearance: alert, in no apparent distress Expanded Teeth exam: Present: dental caries, dental tenderness # Respiratory exam: Present: normal lung sounds bilaterally. Absent: respiratory distress, wheezes, rales, rhonchi, stridor Cardiovascular Exam: Present: regular rate, normal rhythm, normal heart sounds. Absent: systolic murmur, diastolic murmur, rubs, gallop, clicks GI/Abdominal exam: Present: soft, normal bowel sounds. Absent: distended, tend erness, guarding, rebound, rigid Extremities exam: Present: normal inspection, full ROM, normal capillary refill. Absent: tenderness, pedal edema, joint swelling, calf tenderness Skin exam: Present: warm, dry, intact, normal color. Absent: rash Course Vital Signs 10/06/24 10/06/24 22:24 23:30 Temperature 99.1 F 99.0 F Pulse Rate 92 89 Respiratory 20 18 Rate Blood Pressure 109/68 107/85 O2 Sat by Pulse 100 98 Oximetry Medical Decision Making - Medical Decision Making Was pt. sent in by a medical professional or institution (, PA, BUN MACHINE OPERATOR, urgent care, hospital, or retirement...) When possible be specific @ -No Did you speak to anyone other than the patient for history (EMS, parent, family, police, friend...)? What history was obtained from this source @ -No Did you review nursing and triage notes (agree or disagree)? Why? @ -I reviewed and agree with nursing and triage notes Were old charts reviewed (outside hosp., previous admission, EMS record, old EKG, old radiological studies, urgent care reports/EKG's, retirement records)? Report findings @ -No old charts were reviewed Differential Diagnosis (chest pain, altered mental status, abdominal pain women, abdominal pain men, vaginal bleeding, weakness, fever, dyspnea, syncope, headache, dizziness, GI bleed, back pain, seizure, CVA, palpatations, mental health, musculoskeletal)? @ -Dental abscess, dental caries, dental fracture, pulpitis, this list is not all inclusive EKG interpreted by me (3pts min.). @ -None X-rays interpreted by me (1pt min.). @ -None done CT interpreted by me (1pt min.). @ -None done U/S interpreted by me (1pt. min.). @ -None done What testing was considered but not performed or refused? (CT, X-rays, U/S, labs)? Why? @ -None What meds were considered but not given or refused? Why? @ -None Did you discuss the management of the patient with other professionals (professionals i.e. , PA, BUN MACHINE OPERATOR, lab, RT, psych nurse, social worker clinical, soccer coach, teacher, mail officer, pillowcase sewer)? Give summary @ -No Was smoking cessation discussed for >3mins.? @ -No Was critical care preformed (if so, how long)? @ -No Were there social determinants of health that impacted care today? How? (Homelessness, low income, unemployed, alcoholism, drug addiction, transportation, low edu. Level, literacy, decrease access to med. care, intermediate, rehab)? @ -No Was there de-escalation of care discussed even if they declined (Discuss DNR or withdrawal of care, Hospice)? DNR status @ -No What co-morbidities impacted this encounter? (DM, HTN, Smoking, COPD, CAD, Cancer, CVA, ARF, Chemo, Hep., AIDS, mental health diagnosis, sleep apnea, morbid obesity)? @ -None Was patient admitted / discharged? Hospital course, mention meds given and route, prescriptions, significant lab abnormalities, going to OR and other pertinent info. @ -Discharge. 34-year-old female presented to emergency department with right lower dental pain. There is noted dental tenderness and multiple dental caries open overall poor dentition. No signs of dental abscess. Patient divided with pain relief and antibiotics. Case discussed with Dr. Quijano Undiagnosed new problem with uncertain prognosis? @ -No Drug Therapy requiring intensive monitoring for toxicity (Heparin, Nitro, Insulin, Cardizem)? @ -No Were any procedures done? @ -No Diagnosis/symptom? @ -dental pain/pulpitis Acute, or Chronic, or Acute on Chronic? @ -acute Uncomplicated (without systemic symptoms) or Complicated (systemic symptoms)? @ -uncomplicated Side effects of treatment? @ -No Exacerbation, Progression, or Severe Exacerbation? @ -No Poses a threat to life or bodily function? How? (Chest pain, [place], [place], pneumonia, PE, COPD, DKA, ARF, appy, cholecystitis, CVA, Diverticulitis, Homicidal, Suicidal, threat to staff... and all critical care pts) @ -No Disposition Clinical Impression: Pain, dental Disposition: HOME SELF-CARE Condition: Good Instructions (If sedation given, give patient instructions): Toothache (ED) Additional Instructions: Please return to the Emergency Department if symptoms worsen or any other concerns. Prescriptions: Amoxic-Pot Clav 875-125Mg [Augmentin 875-125] 1 tab PO Q12HR #20 tab Ibuprofen [Motrin] 800 mg PO Q8HR PRN #30 tab PRN Reason: Pain Is patient prescribed a controlled substance at d/c from ED?: No Referrals: None,Stated [Primary Care Provider] - 1-2 days Time of Disposition: 23:00
[2024-10-06] MEDS: ACET/COD 300 MG/30 MG STARTER PACK 6 TAB BTL PO STA (23:26)
[2024-10-06] MEDS: HYDROcodone/APAP 5-325MG 1 EACH TAB PO STA (23:26)
[2024-10-06] MEDS: AMOXIC-POT CLAV 875-125MG 1 EACH TAB PO STA (23:26)
[2024-10-06 23:31] VITALS: BP 107/85; PULSE 89; RESP 18; TEMP 99
== END 2024-10-06 23:31 | disposition home or self-care (01) ==
LOC: EC 22:13
DX: K08.89 Other specified disorders of teeth and supporting structures (principal); F17.290 Nicotine dependence, other tobacco product, uncomplicated; Z88.8 Allergy status to other drugs, medicaments and biological substances
CPT/HCPCS: 99282